=== PATIENT | female | born 1945 | race Caucasian/White ===

== ENCOUNTER 2020-08-24 12:14 | Emergency (ER) | payer MEDICARE, SELFPAY ==
--- NOTE | ~2020-08-24 | XR_ITS ---
EXAMINATION: XR chest 1V portable EXAM DATE: 08/24/2020 12:32 INDICATION: Neuro symptoms. Slurred speech, right-sided hemiparesis. TECHNIQUE: Portable AP frontal chest x-ray was obtained. Comparison is made to prior examination from 10/22/2014. FINDINGS: The lungs are clear. There are no pleural effusions. The cardiomediastinal silhouette is within normal limits. There is no pneumothorax suspected. The bones and soft tissues are unremarkab le. IMPRESSION: No acute cardiopulmonary findings. Reviewed, dictated and finalized at location A.
--- NOTE | ~2020-08-24 | CT_ITS ---
EXAMINATION: CTA brain carotid EXAM DATE: 08/24/2020 14:06 INDICATION: Slurred speech. TECHNIQUE: Spiral CTA of the carotid arteries was performed with intravenous injection 100 cc of Omn ipaque 350. Axial, coronal, sagittal reformatted images reviewed. Additional reformatted images crea judy on dedicated 3-D workstation. NASCET comparable standard used to assess the degree of arterial s tenosis. Spiral CT angiogram cerebral arteries performed with the same intravenous injection of cont rast. Source images of the brain CTA transferred to dedicated workstation for 3-D rotational image cr eation. Coronal, sagittal maximum intensity pixel images also reviewed. The dose-length product (DL P) for this examination was 1232.99 mGy-cm. The exposure was tailored according to patient size, an d iterative reconstruction (ASIR) was used as additional dose reduction technique. Correlation is mad e to noncontrast head CT earlier same day. FINDINGS: Left vertebral artery arises from the aortic arch, a normal congenital variant. There is mo derate right carotid bulb plaque which is mostly accommodated by the bulbs nodule dilation, 35% steno sis. On the left there is mild carotid bulb plaque with 0% stenosis. Mild bilateral carotid siphon ar terial sclerosis without stenosis. There is left-sided posterior communicating artery dominant mcat tutor ior cerebral artery. There is no carotid or vertebral basilar arterial dissection or fibromuscular dysplasia. There are no cerebral artery aneurysms. There is symmetric cerebral artery arborization, w ith short segment severe stenosis of the left P2 segment indicated on axial image 102. The sagittal, transverse and sigmoid sinuses enhance normally, no venous sinus thrombosis. Internal cerebral veins also enhance normally. IMPRESSION: 1. No acute carotid or intracranial findings. 2. Right carotid bulb 35% stenosis. 3. Left carotid bulb 0% stenosis. 4. Left P2 severe short segment stenosis. Reviewed, dictated and finalized at location A.
--- NOTE | ~2020-08-24 | CT_ITS ---
EXAMINATION: CT brain wo con DATE: 08/24/2020 12:23 INDICATION: Slurred speech and right-sided weakness TECHNIQUE: Computed tomography (CT) of the head was performed without intravenous contrast. Sagittal and coronal reconstructions were performed. The mA was adjusted according to patient size. Iterative reconstruction technique was employed. The dose-length product was 681.00 mGy-cm. COMPARISON: None FINDINGS: No acute intracranial hemorrhage, acute infarction or abnormal extra axial fluid collection. There is moderate scattered white matter hypoattenuation consistent with chronic small vessel ischemic diseas e. Ventricles are normal and symmetric. No mass/mass effect. Changes of bilateral intraocular lens re placement. The orbits, paranasal sinuses and mastoid air cells are normal. IMPRESSION: 1. Moderate scattered white matter hypoattenuation consistent with chronic small vessel ischemic dise ase. No acute intracranial process. Dr. Reed discussed these findings with Dr. Wong at 12:25 PM. Reviewed, dictated and finalized at location B. IMPRESSION: 1. Moderate scattered white matter hypoattenuation consistent with chronic smal l vessel ischemic disease. No acute intracranial process. Dr. Reed discusse d these findings with Dr. Wong at 12:25 PM.
--- NOTE | 2020-08-24 12:17 | ECG_ITS ---
Measurements Intervals [place] Rate: 98 P: 68 MS: 138 QRS: 9 QRSD: 105 T: 56 QT: 340 QTc: 434 Interpretive Statements SINUS RHYTHM BORDERLINE ST-T WAVE ABNORMALITY- HIGH LATERAL LEADS BASELINE ARTIFACT- I, II, III, AVF BORDERLINE ECG Electronically Signed On 08-24-2020 15:24:43 CDT by Uche Willard D.O.
[2020-08-24 12:29] VITALS: BP 137/75; BP 144/76; BP 148/93; PULSE 94; PULSE 98; PULSE 99; RESP 16; RESP 17; RESP 18; TEMP 36.2; O2SAT 94; O2SAT 95
[2020-08-24 12:31] LABS: Glucose Point of Care 268 (65-105)
--- NOTE | 2020-08-24 12:58 | ED.GENADULT ---
HPI - General Adult General Chief complaint: Suspected CVA Stated complaint: CVA, last known well 1130 Time Seen by Provider: 08/24/20 12:17 Source: patient History of Present Illness HPI narrative: Patient is a 74 y/o female complaining of tongue numbness, difficulty with speech and right leg weakness starting at approximately 11:30 AM today. She states that she woke up this morning feeling fine. She was trying to go to bathroom when her symptoms started. She is normally able to ambulate without assistance. She fell due to leg weakness. She did not hit her head or have any pain after the fall. She had to crawl afterwards. She feels her right leg weakness is better now, but she still has slurred speech. Related Data Home Medications Medication Instructions Recorded Confirmed atorvastatin 08/24/20 08/24/20 glipizide mg 08/24/20 losartan 08/24/20 metformin mg 08/24/20 omeprazole 08/24/20 sitagliptin [Januvia] mg 08/24/20 Allergies Allergy/AdvReac Type Severity Reaction Status Date / Time amoxicillin Allergy Unknown rash Verified 08/24/20 15:43 erythromycin base Allergy Unknown raised Verified 08/24/20 15:43 liver enzymes levofloxacin Allergy Unknown bowel Verified 08/24/20 15:43 problems pantoprazole Allergy Unknown Unknown Verified 08/24/20 15:43 Penicillins Allergy Unknown RASH Verified 08/24/20 15:43 lisinopril AdvReac Unknown COUGH Verified 08/24/20 15:43 PANTOPRAZOLE SODIUM AdvReac Unknown DIARRHEA Uncoded 09/07/15 10:30 Review of Systems Constitutional: Constitutional: Denies chills, Denies fever(s), Denies headache(s) and Reports weakness Eyes: Eyes: Denies blurry vision ENT: Denies headache(s) and Denies neck pain Cardiovascular: Cardiovascular: Denies chest pain and Denies dyspnea Respiratory: Respiratory: Denies cough and Denies dyspnea Gastrointestinal: Gastrointestinal: Denies abdominal pain, Denies diarrhea, Denies nausea and Denies vomiting Genitourinary: Genitourinary: Denies hematuria and Denies dysuria Musculoskeletal: Musculoskeletal: Denies back pain and Denies neck pain Neurologic: Reports Abnormal speech present, Reports abnormal gait, Denies headache(s), Reports focal weakness (right leg weakness) and Reports weakness PMFSH Family History Family History Father Family history of Parkinson's disease Other Diabetes mellitus Family history of Alzheimer's disease Family history of cardiovascular disease Family history of congestive heart failure Family history of malignant neoplasm Social History Social History Alcohol intake: never Exam Const: General: no acute distress and well developed Orientation/consciousness: oriented to person, oriented to place, oriented to time and patient oriented x3 HENMT: Head: normocephalic Ears: external ears normal General nose exam: Normal external nose present Eyes: General: appearance normal, both eyes and all related structures Conjunctivae: conjunctivae normal Neck: Neck: normal visual inspection and full ROM Chest: Chest palpation & inspection: normal inspection of the chest and no tenderness Resp: Effort & Inspection: normal respiratory effort Auscultation: clear to auscultation bilaterally Cardio: Rate: regular rate Rhythm: regular rhythm GI: GI Palp: No abdominal tenderness and Yes Soft to palpation Skin: General skin exam: normal color and turgor normal Neuro: General: oriented to person, oriented to place, oriented to time and patient oriented x3 Cognition (Neuro): normal cognition Extrem: General: normal to inspection, full ROM and no pedal edema Psych: Appearance: grossly normal Mental Status: mental status grossly normal Affect: normal affect Course Reevaluation(s) Reevaluation #1: Discussed with patient about the benefits and risks of tPA for presumed stroke. Informed patient of the
[2020-08-24 13:04] LABS: Basophils Percent Auto 0.6 % (0.2-1.2); Eosinophils Absolute Auto 0.1 K/mm3 (0-0.3); Eosinophils Percent Auto 1.9 % (0-4.4); Hematocrit 38.1 % (37.0-47.0); Hemoglobin 12.6 g/dL (12.0-15.0); Immature Granulocyte Absolute 0.04 K/mm3 (0.00-0.031); Immature Granulocyte Percent A 0.6 % (0-0.5); Lymphocytes Absolute Auto 1.49 K/mm3 (0.9-3.2); Lymphocytes Percent Auto 23.7 % (18.3-44.2); Mean Corpuscular HGB Conc 33.1 g/dl (32-36); Mean Corpuscular Hemoglobin 29.4 pg (26-34); Mean Platelet Volume 10.8 fl (7.4-10.4); Monocytes Absolute Auto 0.4 K/mm3 (0.1-0.6); Monocytes Percent Auto 6.7 % (2.6-8.5); Neutrophils Absolute Auto 4.2 K/mm3 (1.3-6.7); Neutrophils Percent Auto 66.5 % (45.5-73.1); Platelet Count Result 238 k/mm3 (150-375); Red Blood Count 4.28 M/mm3 (4.2-5.4); Red Cell Distribution Width 12.1 % (11.5-14.5); White Blood Count 6.3 K/mm3 (4.5-10.0)
[2020-08-24 13:13] VITALS: O2SAT 94
[2020-08-24 13:17] VITALS: BP 135/72; PULSE 99; RESP 20; O2SAT 94
[2020-08-24 13:17] LABS: Anion Gap 7 mmol/L (8-16); Blood Urea Nitrogen 22 mg/dL (7-17); Calcium 9.1 mg/dL (8.4-10.2); Carbon Dioxide 28 mmol/L (22-30); Chloride 104 mmol/L (98-107); Estimated CRCL calculation 50 ml/min; Estimated Glomerular Filt Rate 49; Glucose 267 mg/dL (65-105); INR 0.9; Potassium 4.3 mmol/L (3.4-5.0); Prothrombin Time 12.8 Seconds (11.1-14.7); Sodium 139 mmol/L (137-145)
[2020-08-24 13:18] LABS: Partial Thromboplastin Time 23.7 SECONDS (22.3-36.8)
[2020-08-24 13:30] LABS: Troponin I 0.042 ng/mL (0.000-0.034)
--- NOTE | 2020-08-24 14:34 | PC.NURSE ---
Pts TPA is complete. This RN believes that pts right sided facial dropping has increased. Informed Dr. Key of this. Pt requested to go to one of the hospitals in [place], I also informed Dr. Wong of this.
[2020-08-24 15:00] VITALS: O2SAT 100
[2020-08-24 15:36] VITALS: BP 142/85; PULSE 110; RESP 18; O2SAT 93
== END 2020-08-24 16:23 | disposition short-term general hospital (02) ==
LOC: ANHED 13:16
PROVIDERS: Emergency Provider Emergency Medicine
DX: I63.9 Cerebral infarction, unspecified (principal); R29.702 NIHSS score 2; E78.00 Pure hypercholesterolemia, unspecified; I10 Essential (primary) hypertension; E11.9 Type 2 diabetes mellitus without complications; Z79.84 Long term (current) use of oral hypoglycemic drugs; R94.31 Abnormal electrocardiogram [ECG] [EKG]
CPT/HCPCS: 36415; 37195; 70450; 70496; 70498; 71045; 80048; 82948; 84484; 85025; 85610; 85730; 93005; 99285; J2997; J7030; Q9967

== ENCOUNTER 2020-10-12 10:03 | Outpatient (CLI) | payer MEDICARE, SELFPAY ==
--- NOTE | ~2020-10-12 | US_ITS ---
EXAMINATION: US carotid duplex BI DATE: 10/12/2020 10:35 INDICATION: Carotid artery atherosclerosis and stenosis TECHNIQUE: Grayscale, color Doppler, and pulsed Doppler images of the cervical carotid arteries were obtained. The degree of vessel stenosis is placed in one of the following categories: normal, <50%, 5 0-69%, >=70% but less than near-occlusion, near-occlusion, or total occlusion. Note that percent sten osis relative to normal distal artery lumen diameter is indirectly measured from velocity measurement s as described by David, et al. Radiology 2003; 229:340-346. COMPARISON: Carotid CT angiogram dated 08/24/2020 FINDINGS: RIGHT: The right common carotid artery (CCA) peak systolic velocity (PSV) is 73 cm/s. The right internal car otid artery (ICA) PSV is 87 cm/s. The right ICA end-diastolic velocity (EDV) is 16 cm/s. The right IC A/CCA PSV ratio is 1.2. Grayscale and color Doppler images yield an estimate of <50% diameter reducti on from plaque in the ICA. The external carotid artery (ECA) PSV is 92 cm/s. There is antegrade flow in the right vertebral artery. LEFT: The left CCA PSV is 90 cm/s. The left ICA PSV is 73 cm/s. The left ICA EDV is 18 cm/s. The left ICA/C CA PSV ratio is 0.8. Grayscale and color Doppler images yield an estimate of <50% diameter reduction from plaque in the ICA. The ECA PSV is 77 cm/s. There is antegrade flow in the left vertebral artery. IMPRESSION: 1. <50% stenosis in the right internal carotid artery. 2. <50% stenosis in the left internal carotid artery. Reviewed, dictated and finalized at location A.
== END 2020-10-12 10:04 | disposition home or self-care (01) ==
PROVIDERS: PCP Internal Medicine; Visit Provider Nurse Practitioner
DX: I65.23 Occlusion and stenosis of bilateral carotid arteries (principal)
CPT/HCPCS: 93880

== ENCOUNTER → 2020-10-29 07:54 | Outpatient (CLI) | payer MEDICARE, SELFPAY ==
[2020-10-29 19:22] LABS: SARS-CoV-2 RNA PCR Negative
== END ==
PROVIDERS: PCP Internal Medicine; Visit Provider Internal Medicine Critical Care Medicine
DX: R68.89 Other general symptoms and signs (principal); Z20.822 Contact with and (suspected) exposure to COVID-19
CPT/HCPCS: C9803; U0003; U0005

== ENCOUNTER 2020-11-01 09:04 | Outpatient (CLI) | payer MEDICARE, SELFPAY ==
--- NOTE | 2020-11-15 13:52 | WPDSLEEPSTUD ---
Sleep Study Date of Study: 11/01/20 Ordering Provider: MARYAM Macias Interpreting Physician: Cony Raymond MD Sleep Study Type: Polysomnogram Height: 1.75 m Weight: 87.543 kg Body Mass Index: 28.5 Neck Circumference (inches): 16 Ione: 12 Reason for Sleep Study Recent stroke, increased need for sleep Sleep History Anna Bajwa is a 74-year-old female with a recent stroke in August of 2020. She does not awaken from sleep feeling short of breath. She does not awaken at night with heartburn, belching or coughing. She occasionally snores. Rarely she snores loudly enough that others complain. She does not have trouble sleep with a cold. She does not wake up gasping for breath at night. She does not have breathing problems at night observed by others. She occasionally sweats excessively at night. She does not notice her heart pounding or beating irregularly at night she occasionally falls asleep during the day, occasionally involuntarily but she never falls asleep while driving. She does not have loss of muscle tone was strong emotion. She does not have daytime difficulties due to excessive sleepiness. She does not feel paralyzed on waking or falling asleep. She occasionally has vivid dreamlike scenes upon awakening or falling asleep. She does not feel afraid to go to sleep. She does not have nightmares. She occasionally remembers her dreams. She does not have racing thoughts, feelings of sadness depression or anxiety. She does not have muscular tension. She does not notice part of her body jerking. She does not kick at night. She does not have crawling and aching feelings in her legs. She does not have any kind of leg pain at night. She does not have morning jaw pain. She occasionally grinds her teeth. She is not bothered by pain during the day, and she is not awakened by pain during the night. She does not wake up feeling stiff in the morning with sore achy muscles. She does not wake up with pain in the neck and spine. She has fatigue and tremors. She has had more problems with memory since her stroke. She does frequently awaken feeling refreshed. Before having her stroke she slept 6 hours a night and now after stroke she is sleeping 12 hours a night since August 24. She normally goes to bed between 9:10 p.m. falling asleep within 5 minutes waking once at night to urinate. She falls asleep again within 10 minutes. She wakes the morning between 8 and 9:00 a.m. Her weekend schedule is the same. She does take naps in the afternoon or evening. A short nap is sometimes refreshing. She feels better in the morning compared other times of day. Habits: No tobacco. No caffeine, alcohol or recreational drugs. [facility] Past Medical History Medical History (Updated 11/15/20 @ 14:10 by Cony Raymond MD) Carotid stenosis Chronic gastroesophageal reflux disease Depression Essential hypertension Hx of completed stroke R sided CVA with hemiparesis Hyperlipidemia Liver mass Type 2 diabetes mellitus without complication, without long-term current use of insulin Surgical History Surgical History (Updated 11/15/20 @ 14:01 by Cony Raymond MD) H/O hysterectomy with oophorectomy 1987 Family History Family History Father Family history of Parkinson's disease Heart problem Mother Cancer Sibling Anxiety Heart problem Grandparent Cancer Other Diabetes mellitus Family history of Alzheimer's disease Family history of cardiovascular disease Family history of congestive heart failure Family history of malignant neoplasm Social History Social History Smoking status: Never smoker Second hand tobacco smoke exposure: No Alcohol intake: current Medications Home Medications Medication Instructions Recorded Confirmed Type omega-3 fatty acids 1,000 mg 1,000 mg PO
[2020-11-15 14:12] VITALS: BMI 28.5
== END 2020-11-02 09:20 | disposition home or self-care (01) ==
LOC: ANHCSM 11-02 09:04
PROVIDERS: PCP Internal Medicine; Visit Provider Nurse Practitioner
DX: G47.33 Obstructive sleep apnea (adult) (pediatric) (principal); R06.83 Snoring
CPT/HCPCS: 95810

== ENCOUNTER 2020-11-10 13:23 | Outpatient (CLI) | payer MEDICARE, SELFPAY ==
--- NOTE | ~2020-11-10 | MM_ITS ---
EXAMINATION: MM screening [facility] BI w arsen HISTORY: Screening TECHNIQUE: Craniocaudal and mediolateral oblique 3-D tomosynthesis images were obtained and synthetic 2-D images were generated. CAD analysis was submitted and interpreted. COMPARISON: Comparison to multiple prior studies sequentially, with oldest reviewed study dated 02/2012. BREAST PARENCHYMAL COMPOSITION: There are scattered areas of fibroglandular density. FINDINGS: There is no evidence of suspicious mass, calcification, or architectural distortion to sugg est malignancy in either breast. There has been no suspicious interval change. IMPRESSION: 1. No mammographic evidence of malignancy. 2. Recommend routine screening mammography in one year. BI-RADS Category 1: Negative Reviewed, dictated and finalized at location A.
--- NOTE | ~2020-11-10 | DEXA_ITS ---
Bone Density Report Name: Anna Bajwa Age: 74 Sex: Female Ethnicity: White Date of : 1945 Indication: postmenopausal; height loss; hysterectomy; Referring Provider: Olamide Watts Study: Bone densitometry was performed. Exam Date: November 10, 2020 Accession number: [id number] Bone Density: Region BMD T-score Z-score Classification AP Spine (L1, L2, L3) 0.928 -0.8 1.5 Normal Femoral Neck (Left) 0.783 -0.6 1.5 Normal Total Hip (Left) 0.879 -0.5 1.3 Normal Total Hip Bilateral Avg 0.880 -0.5 1.3 Normal Femoral Neck (Right) 0.787 -0.6 1.5 Normal Total Hip (Right) 0.879 -0.5 1.3 Normal World Health Organization criteria for BMD impression classify patients as: Normal (T-score at or above -1.0), Osteopenia (T-score between -1.0 and -2.5), or Osteoporosis (T-score at or below -2.5). 10-year Fracture Risk: FRAX not reported because: All T-scores for Spine Total, Hip Total, Femoral Neck at or above -1.0 Clinical Information Provided by Patient: Has the following medical conditions: Hysterectomy Patient maximum height was 71 Menopause Age: 42 No regular weight bearing exercise Does not regularly consume dairy products Onset of menses at age 12 Number of children 1 Impression: The patient has normal bone mass. Discussion: BONE DENSITY IS ABOVE THE MINIMUM DESIRABLE LEVEL AT ALL SKELETAL SITES TESTED. This patient?s bone mineral density is above the minimum desirable level (T-score -1.0 or better) at all sites measured. The patient should follow a healthful lifestyle (good nutrition with adequate calcium and vitamin D, and appropriate weight-bearing exercise). Follow-Up: Consider repeating this study in 5 years or sooner if there is some new clinical indication. Reported by: SABINA on 11/10/2020 1:52:00 PM. Reviewed, dictated and finalized at location AMikey MADDOX
== END 2020-11-10 13:24 | disposition home or self-care (01) ==
LOC: ANHIMG 13:24
PROVIDERS: PCP Internal Medicine; Visit Provider Nurse Practitioner
DX: Z12.31 Encounter for screening mammogram for malignant neoplasm of breast (principal); Z78.0 Asymptomatic menopausal state
CPT/HCPCS: 77063; 77067; 77080

== ENCOUNTER → 2020-12-08 09:42 | Outpatient (CLI) | payer MEDICARE, SELFPAY ==
--- NOTE | ~2020-12-08 | MR_ITS ---
EXAMINATION: MR brain/brain stem wo con DATE: 12/08/2020 10:19 INDICATION: Right hemiparesis. TECHNIQUE: Magnetic resonance imaging (MRI) of the brain and brainstem was performed without intraven ous contrast. Sequences included sagittal and axial T1-weighted FSE, axial diffusion-weighted FS EPI, axial T2*-weighted GRE, axial T2-weighted FLAIR Propeller, and axial T2-weighted Propeller. Apparent diffusion coefficient (ADC) maps were created. COMPARISON: Head CT 08/24/2020 FINDINGS: There is an old lacunar infarct in left thalamus. There are scattered areas of low attenuat ion in the cerebral white matter and magdalena. There is no intracranial hemorrhage, acute infarction, or abnormal intracranial mass lesion. The ventricles are normal in size. There are likely changes of ocu lar lens replacement surgeries. There is mild mucosal thickening in the ethmoid sinuses. The mastoid air cells are normal. IMPRESSION: 1. Old lacunar infarct in left thalamus. 2. Moderate nonspecific cerebral white matter disease and pontine disease, which likely represents ch ronic small vessel ischemic disease. Reviewed, dictated and finalized at location A. IMPRESSION: 1. Old lacunar infarct in left thalamus. 2. Moderate nonspecific cerebral white matter disease and pontine disease, whic h likely represents chronic small vessel ischemic disease.
== END ==
PROVIDERS: PCP Internal Medicine; Visit Provider Nurse Practitioner Gerontology
DX: I63.9 Cerebral infarction, unspecified (principal); R93.0 Abnormal findings on diagnostic imaging of skull and head, not elsewhere classified
CPT/HCPCS: 70551

== ENCOUNTER 2021-01-11 11:00 | Outpatient (RCR) | payer MEDICARE, SELFPAY ==
--- NOTE | 2020-12-16 14:30 | PTOPEVAL ---
PHYSICAL THERAPY EVALUATION AND PLAN OF CARE Thank you for referring Anna Bajwa to [facility].? The patient is scheduled to be seen for therapy? 1x/week for 4 weeks. Please review, sign, date and return this plan of care JULISSA. I agree with and certify that the following plan of care is medically necessary. Referring Physician Date Attending Provider: Zahraa Cowan, LINUX DEVOPS ENGINEER Evaluation Problem Diagnosis CVA Onset 08/24/2020 Subjective Information Had a CVA affecting the right Query Text:As Reported By Patient/ side. She recieved TPA and Family went to [place] and spent 2 nights and then went home. She lives at home alone. Has had no falls since she has been home. Has a difficult time writing. 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 Prior Level of Function Activity Level (Last 3 Months) Hand Dominance Right Activity of Daily Living Ability Independent Indoor/Home Mobility Independent Community Mobility Independent Stairs Ability Independent Functional Cognition (Planning, Shopping Independent , Taking Medications) Cooking Yes Cleaning Yes Laundry Yes Shopping Yes Driving Yes Home Setting Home Type House,Single Level Environmental Barriers Stairs, Greater than 4 Living Situation Alone Support Available Hired Assistance,Local Family Support Mobility Assistive Devices (Used Last 3 None Months) Pain Score Pain Score 0: Self Report Lower Extremity Muscle Strength Testing General Lower Extremity Strength Gross Lower Extremity Strength generally WNL bilateral LE strength; heel walking and toe walking have decreased height ; SLS has a right hip drop indicating poor glute med strength on right Balance Assessment Denis Balance Assessment 43/56 Time Up Go (TUG) Timed Up and Go Test (TUG) (Seconds) 10 Assistive Devices None 5 Time Sit to Stand Time in Seconds 25.83 Dynamic Gait Index 17 Gait Ass
--- NOTE | 2020-12-16 15:39 | OTOPEVAL ---
OCCUPATIONAL THERAPY INITIAL EVALUATION REPORT 12/16/20 Thank you for referring Anna Bajwa to [facility].? The patient is scheduled to be seen for therapy? 1x/week for 4 weeks. Please review, sign, date and return this plan of care JULISSA. I agree with and certify that the following plan of care is medically necessary. 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 Cardiovascular History Hx Hypercholesterolemia Yes Hx Hypertension Yes: Med controlled Respiratory History Hx Respiratory Disorders No Significant History Gastrointestinal History Hx Gastrointestinal Disorders No Significant History Genitourinary History Hx Genitourinary Disorders No Significant History Musculoskeletal History Hx Musculoskeletal Disorders No Significant History Hematological History Hx Hematological Disorders No Significant History Endocrine History Hx Diabetes Yes HEENT History Hx HEENT Disorders No Significant History Integumentary History Hx Skin Disorders No Significant History Reproductive History Hx Reproductive Disorders No Significant History Psychosocial History Hx Psychiatric Disorders No Significant History Pain History History of Any Previous or Ongoing No Significant History Instance of Pain Anesthesia History Hx Anesthesia Reactions No Significant History Evaluation Information Problem Diagnosis CVA Onset 08/24/2020 Subjective Information Had a CVA affecting the right Query Text:As Reported By Patient/ side. She received TPA and Family went to [place] and spent 2 nights and then went home with home health OT and PT. Has had no falls since she has been home. She lives at home alone. She has returned to doing all of her own ADLs, cooking, laundry, and driving. 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 She reports that she would like to improve her writing to be able to write her own checks and sending cards. Prior Level of Function Activity Level (Last 3 Months) Hand Dom
--- NOTE | 2021-01-11 10:45 | OTOPEVAL ---
OCCUPATIONAL THERAPY RE-EVALUATION REPORT AND DISCHARGE NOTE 01/11/2021 Anna presents today for OT re-evaluation after beginning therapy 12/16/20 with 3 subsequent treatment sessions. Focus of OT was on distal hand coordination with the goal of being able to write more legibly for cards. Patient states that she has noticed improvements, but continues to be only at about 50% of what she once was with handwriting. Patient is currently independent with all HEPs to continue to work on functional coordination and handwriting. No further skilled OT is indicated at this time. Thank you for referring Anna Bajwa to [facility]. Please review, sign, date and return this D/C Note JULISSA. I agree with and certify that the following plan of care is medically necessary. Referring Physician Date Referring Provider: Zahraa Cowan, CARE MANAGEMENT COORDINATOR *OT Outpatient Re-Evaluation Start: 12/16/20 14:34 Diagnosis CVA Onset 08/24/2020 Subjective Information Anna reports improved Query Text:As Reported By Patient/ function with the right UE Family since beginning therapy. She states she has better control of the arm to wash her hair and improved coordination for writing. She states she sent her daughter a birthday card and she states she wrote better than she was, but not as good as I was . Reports washing hair is 80% normal and writing as maybe 50% normal . Pain Assessment Timing of Pain Assessment Timing of Pain Assessment Assessment Self Report Self Report Pain Level 0 Pain Score Pain Score 0: Self Report Upper Extremity Range of Motion General Upper Extremity Range of Motion Reason Not Measured WNL/Left,WNL/Right Upper Extremity Muscle Strength Testing General Upper Extremity Strength Gross Upper Extremity Strength Comments BUEs are 5/5 and symmetrical. 9-Hole Peg Hand Test Hand Right Scoring Time (seconds) 32 Comments 9-hole peg time remained unchanged since SOC. Norm: 28 sec Upper Extremity Exercise Finger/Thumb Exercise Right Finger/Thumb Exercise Comments Patient is currently independent with right hand strengthening and fine motor coordination HEP. Discussed at length the importance of continuing the HEP daily for optimal cortical reorganization. OT Clinical Summary OT Clinical Summary Anna presents today for OT re -evaluat
--- NOTE | 2021-01-11 11:13 | PTOPEVAL ---
PHYSICAL THERAPY DISCHARGE NOTE Thank you for referring Anna Bajwa to [facility].? Please review, sign, date and return this plan of care JULISSA. I agree with and certify that the following plan of care is medically necessary. Referring Physician Date Attending Provider: Zahraa Cowan, FARM MANAGEMENT PROFESSOR Discharge Diagnosis CVA Onset 08/24/2020 Subjective Information She reports that she thinks Query Text:As Reported By Patient/ she is doing better with Family better walking and a little better endurance. Pain Score Pain Score 0: Self Report Lower Extremity Muscle Strength Testing General Lower Extremity Strength Gross Lower Extremity Strength generally WNL bilateral LE strength; heel walking and toe walking have decreased height ; SLS has a right hip drop indicating poor glute med strength on right Balance Assessment Denis Balance Assessment 49/56 points Time Up Go (TUG) Timed Up and Go Test (TUG) (Seconds) 9 Assistive Devices None 5 Time Sit to Stand Time in Seconds 25.83 5 Time Sit to Stand Comments difficulty coming to stand Query Text:Normative Data: If Greater without hands; used arm rests Than 15 Seconds, 74% Increase Risk for for 4/5 reps Recurrent Falls 1 month ago = 25.83seconds with arm rests Dynamic Gait Index: 23/24 Gait Assessment 6 Minute Walk Total Distance (feet) 1,287 6 Minute Walk Gait Speed Score (feet/ 3.57 second) 6 Minute Gait Comments toe drag and right listing only happened during last minute of test General Exercise General Exercises Side Bilateral Exercise Type Active,Resistive Exercise Description -standing hip abduction x15 Query Text:Record Sets, Reps, each side Resistance, and Position -heel walking -toe walking -high knee marching forward -high knee marching in place with altnerating UE press up 3 # - more difficulty with coordination PT Clinical Summary Anna is a 74 yo female presenting to outpatient physical therapy 3.5 months s/ p CVA affecting her right side . Anna presents today with improved balance tests
== END 2021-03-03 07:44 | disposition home or self-care (01) ==
LOC: ANHPT 11:00
PROVIDERS: PCP Internal Medicine; Visit Provider Nurse Practitioner Gerontology
DX: I63.9 Cerebral infarction, unspecified (principal)
CPT/HCPCS: 97110; 97161; 97165; 97530

== ENCOUNTER 2021-01-20 08:05 | Outpatient (CLI) | payer MEDICARE, SELFPAY ==
--- NOTE | 2021-02-16 21:19 | WPDSLEEPSTUD ---
Sleep Study Date of Study: 01/20/21 Ordering Provider: Uche Willard DO Interpreting Physician: Cony Raymond MD Sleep Study Type: CPAP Titration Height: 1.78 m Weight: 86.636 kg Body Mass Index: 27.3 Neck Circumference (inches): 16 [place]: 15 Reason for Sleep Study * 11/01/2020 basic nocturnal polysomnogram with mild obstructive sleep apnea syndrome, overall apnea-hypopnea index 11.7, desaturation 86%, 1.3 minutes spent below 88% and snoring throughout the test; severe during supine REM with AHI 57.1 and supine sleep, AHI 55. She presents for a CPAP titration. She has hypertension, and this medical comorbidty allows her to proceed with PAP titration with overall mild sleep apnea, AHI 11.7. Sleep History Anna Bajwa is a 74-year-old female with a recent stroke in August of 2020. She does not awaken from sleep feeling short of breath. She does not awaken at night with heartburn, belching or coughing. She occasionally snores. Rarely she snores loudly enough that others complain. She does not have trouble sleep with a cold. She does not wake up gasping for breath at night. She does not have breathing problems at night observed by others. She occasionally sweats excessively at night. She does not notice her heart pounding or beating irregularly at night she occasionally falls asleep during the day, occasionally involuntarily but she never falls asleep while driving. She does not have loss of muscle tone was strong emotion. She does not have daytime difficulties due to excessive sleepiness. She does not feel paralyzed on waking or falling asleep. She occasionally has vivid dreamlike scenes upon awakening or falling asleep. She does not feel afraid to go to sleep. She does not have nightmares. She occasionally remembers her dreams. She does not have racing thoughts, feelings of sadness depression or anxiety. She does not have muscular tension. She does not notice part of her body jerking. She does not kick at night. She does not have crawling and aching feelings in her legs. She does not have any kind of leg pain at night. She does not have morning jaw pain. She occasionally grinds her teeth. She is not bothered by pain during the day, and she is not awakened by pain during the night. She does not wake up feeling stiff in the morning with sore achy muscles. She does not wake up with pain in the neck and spine. She has fatigue and tremors. She has had more problems with memory since her stroke. She does frequently awaken feeling refreshed. Before having her stroke she slept 6 hours a night and now after stroke she is sleeping 12 hours a night since August 24. She normally goes to bed between 9:10 p.m. falling asleep within 5 minutes waking once at night to urinate. She falls asleep again within 10 minutes. She wakes the morning between 8 and 9:00 a.m. Her weekend schedule is the same. She does take naps in the afternoon or evening. A short nap is sometimes refreshing. She feels better in the morning compared other times of day. Habits: No tobacco. No caffeine, alcohol or recreational drugs. [facility] Past Medical History Medical History (Updated 02/16/21 @ 21:37 by Cony Raymond MD) Carotid stenosis Chronic gastroesophageal reflux disease Depression Essential hypertension Hx of completed stroke R sided CVA with hemiparesis Hyperlipidemia Liver mass Obstructive sleep apnea Type 2 diabetes mellitus without complication, without long-term current use of insulin Surgical History Surgical History H/O hysterectomy with oophorectomy 1987 Family History Family History Father Family history of Parkinson's disease Heart problem Mother Cancer Sibling Anxiety Heart problem Grandparent Cancer Other Diabetes mellitus Family history of Alzheimer's disease Family history of cardiovascular di
[2021-02-16 21:43] VITALS: BMI 27.3
== END 2021-01-21 06:46 | disposition home or self-care (01) ==
PROVIDERS: PCP Internal Medicine; Visit Provider Internal Medicine Cardiovascular Disease
DX: G47.33 Obstructive sleep apnea (adult) (pediatric) (principal)
CPT/HCPCS: 95811

== ENCOUNTER 2021-01-25 07:41 | Outpatient (CLI) | payer MEDICARE, SELFPAY ==
--- NOTE | 2021-01-25 07:46 | ECHO_ITS ---
Patient Info Name: Anna Bajwa Age: 75 years : 1945 Gender: Female Ht: 70 in Wt: 194 lbs BSA: 2.10 m2 HR: 80 bpm BP: 116 / 84 mmHg Heart Rhythm: Sinus Rhythm Exam Date: 01/25/2021 8:07 AM Exam Location: [facility] Patient Status: Outpatient Admit Date: 01/25/2021 Staff Ordering Physician: Uche Willard DO Business Test Analyst: Emerita Clark RDCS Attending Provider: Uche Willard DO Referring Physician: Sudheer KATZ; Exam Type: CA echo doppler color flow Study Info Indications R06.00 - Dyspnea, unspecified Complete two-dimensional, color flow and Doppler transthoracic echocardiogram is performed. Summary 1. Complete two-dimensional, color flow and Doppler transthoracic echocardiogram is performed. 2. Left ventricular chamber dimension is normal. 3. Left ventricular systolic function is normal, estimated at 55-60%. 4. The left ventricular diastolic function is grade I diastolic dysfunction. 5. E/e' 12 is mildly elevated. 6. Left atrial chamber dimension is mildly enlarged. 7. There is mild aortic valve sclerosis. 8. The mitral valve has mildly calcified leaflets and moderately calcified annulus. 9. No pulmonary hypertension, estimated pulmonary arterial systolic pressure is 27 mmHg. 10. There is trace pulmonic regurgitation. Left Ventricle E/e' 12 is mildly elevated. Left ventricular chamber dimension is normal. Left ventricular systolic function is normal, estimated at 55-60%. The left ventricular diastolic function is grade I diastolic dysfunction. Right Ventricle Right ventricular systolic function is normal and with normal TAPSE 2.0 cm. Right ventricular chamber dimension is normal. Left Atria Left atrial chamber dimension is mildly enlarged. Right Atria Right atrial chamber dimension is normal. Aortic Valve The aortic valve is trileaflet. There is mild aortic valve sclerosis. There is no aortic valve stenosis. There is no aortic valve regurgitation. Pulmonic Valve There is trace pulmonic regurgitation. Mitral Valve The mitral valve has mildly calcified leaflets and moderately calcified annulus. There is no mitral valve stenosis. There is no mitral valve regurgitation. Tricuspid Valve There is no tricuspid valve regurgitation. No pulmonary hypertension, estimated pulmonary arterial systolic pressure is 27 mmHg. Pericardium/Pleural There is no pericardial effusion. Inferior Vena Cava Normal inferior vena cava with >50% collapse upon inspiration consistent with normal right atrial pressure, 5 mmHg. Aorta The aortic root size at the sinus of Valsalva is normal. Left Ventricular Outflow Tract Name Value Normal LVOT 2D LVOT Diameter 2.1 cm LVOT Doppler LVOT Peak Gradient 4 mmHg LVOT Mean Gradient 2 mmHg LVOT VTI 23 cm LVOT VTI/AV VTI Ratio 0.7 LVOT Stroke Volume 78 ml LVOT CO 5.6 l/min LVOT CI 2.7 l/min/m2 Pulmonic Valve -----
== END 2021-01-25 07:42 | disposition home or self-care (01) ==
LOC: ANHCARD 07:42
PROVIDERS: PCP Internal Medicine; Visit Provider Internal Medicine Cardiovascular Disease
DX: R06.00 Dyspnea, unspecified (principal)
CPT/HCPCS: 93306

== ENCOUNTER 2021-08-10 14:18 | Outpatient (CLI) | payer MEDICARE, SELFPAY ==
--- NOTE | 2021-08-15 16:54 | WPDHOLTEREM ---
Holter/Event Monitor Holter/Event Monitor Date of procedure: 08/10/21 Holter/Event Procedure: 48 Hr Holter Monitor Indications: Palpitations Conclusion: 1. 48 hour holter monitor on 08/10/21. 2. Predominant rhythm is sinus rhythm. HR range 63-143 bpm; average HR 84 bpm. 3. There are 109 premature supraventricular complexes and 3 supraventricular couplets. There are 4 episodes of atrial tachycardia, fastest at 185 bpm and longest lasting 9 beats. 4. There are 611 premature ventricular complexes. No ventricular tachycardia. 5. No sinoatrial or atrioventricular blocks. No significant pauses greater than 2 seconds. 6. No symptoms available for correlation.
== END 2021-08-10 14:19 | disposition home or self-care (01) ==
LOC: ANHCARD 14:21
PROVIDERS: PCP Internal Medicine; Visit Provider Internal Medicine Cardiovascular Disease
DX: R00.2 Palpitations (principal)
CPT/HCPCS: 93225; 93226

== ENCOUNTER 2022-01-23 15:58 | Outpatient (CLI) | payer MEDICARE, SELFPAY ==
--- NOTE | ~2022-01-23 | CT_ITS ---
EXAMINATION: CT brain wo con DATE: 01/23/2022 16:22 INDICATION: Left-sided headache, head pressure. History of cerebrovascular accident with hemiparesis. TECHNIQUE: Computed tomography (CT) of the head was performed without intravenous contrast. The mA wa s adjusted according to patient size. Iterative reconstruction technique was employed. Exam dose: 60 5.33 mGy-cm total exam DLP. COMPARISON: 12/08/2020 MRI brain/brainstem 08/24/2020 CTA brain carotid 08/24/2020 CT brain FINDINGS: Bilateral vertebral artery, basilar and bilateral carotid siphon internal carotid artery ca lcifications. There is prominent patchy diminished attenuation of the cerebral white matter, likely due to chronic vessel ischemic changes. Chronic prominent chronic lacunar infarct of left thalamus. Small chronic left basal ganglia lacunar infarct. No intracranial mass lesion or hemorrhage or cerebrovascular accident is noted otherwise. No subdural or epidural hematoma. No skull fracture or bone destruction. The mastoid air cells and paranasal sinuses are normally developed and aerated. No fracture or bone destruction of the cranial vault. IMPRESSION: Chronic lacunar infarcts of the left thalamus and left basal ganglia Cerebral atherosclerosis and chronic small vessel ischemic changes of the cerebral white matter No acute intracranial finding or hemorrhage is noted Reviewed, dictated and finalized at [facility]. Reviewed, dictated and finalized at [facility]. IMPRESSION: Chronic lacunar infarcts of the left thalamus and left basal gangl ia Cerebral atherosclerosis and chronic small vessel ischemic changes of the cereb ral white matter No acute intracranial finding or hemorrhage is noted
== END 2022-01-23 15:59 | disposition home or self-care (01) ==
PROVIDERS: PCP Internal Medicine; Visit Provider Internal Medicine
DX: R51.9 Headache, unspecified (principal); I67.2 Cerebral atherosclerosis
CPT/HCPCS: 70450

== ENCOUNTER 2022-02-01 14:30 | Outpatient (RCR) | payer MEDICARE, SELFPAY ==
[2021-11-16 10:56] VITALS: BMI 25.4
[2021-11-16 11:11] VITALS: BMI 25.4
== END 2022-02-07 10:38 | disposition home or self-care (01) ==
LOC: ANHDMC 14:30
PROVIDERS: PCP Internal Medicine; Visit Provider Internal Medicine Endocrinology, Diabetes & Metabolism
DX: E11.65 Type 2 diabetes mellitus with hyperglycemia (principal); Z71.3 Dietary counseling and surveillance; Z71.89 Other specified counseling
CPT/HCPCS: 97802; G0108; G0109

== ENCOUNTER 2022-04-27 14:21 | Outpatient (RCR) | payer MEDICARE, SELFPAY | END 2022-04-27 19:06 | disposition home or self-care (01) | LOC: ANHDMC 14:21 | PROVIDERS: PCP Internal Medicine; Visit Provider Internal Medicine Endocrinology, Diabetes & Metabolism | DX: E11.65 Type 2 diabetes mellitus with hyperglycemia (principal); Z71.89 Other specified counseling | CPT/HCPCS: G0109 ==

== ENCOUNTER 2022-08-28 10:10 | Outpatient (CLI) | payer MEDICARE, SELFPAY ==
--- NOTE | ~2022-08-28 | MM_ITS ---
EXAMINATION: MM screening giovany BI w arsen HISTORY: Screening TECHNIQUE: Craniocaudal and mediolateral oblique 3-D tomosynthesis images were obtained and synthetic 2-D images were generated. CAD analysis was submitted and interpreted. COMPARISON: No prior mammogram is available for comparison at this institution. BREAST PARENCHYMAL COMPOSITION: The breasts are heterogeneously dense, which may obscure small masses . FINDINGS: In the left breast there are 2 clusters of calcifications posteriorly in the upper outer qu adrant which have increased in number and density compared with prior studies. The right breast is st able without evidence for malignancy. IMPRESSION: 1. Developing clusters of calcifications in the left breast. 2. Magnification views are recommended. BI-RADS Category 0: Incomplete: Needs additional imaging evaluation. Reviewed, dictated and finalized at location [facility].
== END 2022-08-28 10:11 | disposition home or self-care (01) ==
LOC: ANHIMG 10:12
PROVIDERS: PCP Internal Medicine; Visit Provider Nurse Practitioner
DX: Z12.31 Encounter for screening mammogram for malignant neoplasm of breast (principal); R92.8 Other abnormal and inconclusive findings on diagnostic imaging of breast
CPT/HCPCS: 77063; 77067

== ENCOUNTER 2022-09-18 11:47 | Outpatient (CLI) | payer MEDICARE, SELFPAY ==
--- NOTE | ~2022-09-18 | MM_ITS ---
EXAMINATION: MM diagnostic mammo unilat LT HISTORY: Developing clusters of calcifications reported in left breast on 08/28/2022 screening mammogr am TECHNIQUE: Additional ML and magnification MLO and CC views were performed.. CAD analysis was submitt ed and interpreted. COMPARISON: 08/28/2022, 11/10/2020ilateral screening mammogram examinations FINDINGS: There are a couple of chronic grouped microcalcifications in the upper outer left breast wh ich date back to 11/10/2020. 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 Some arterial calcification is noted as well. There is heterogeneous density of the breast. No suspicious mass, architectural distortion, malignant calcification, skin thickening or retraction is evident. IMPRESSION: 1. Benign calcifications 2. Routine annual mammographic screening is recommended BI-RADS Category 2: Benign finding(s). Reviewed, dictated and finalized at location [facility].
== END 2022-09-18 11:48 | disposition home or self-care (01) ==
LOC: ANHIMG 11:47
PROVIDERS: PCP Internal Medicine; Visit Provider Nurse Practitioner
DX: R92.8 Other abnormal and inconclusive findings on diagnostic imaging of breast (principal)
CPT/HCPCS: 77065

== ENCOUNTER 2022-10-10 10:00 | Outpatient (RCR) | payer MEDICARE, SELFPAY ==
--- NOTE | 2022-08-17 18:29 | PTOPEVAL1 ---
Assessment and note entered by Tyree Cervantes, PT Evaluation Information Assessment Status Evaluation Diagnosis R shoulder pain Subjective Information Patient reports that she was moving her marcello sized mattress 6-8 months ago and felt pain in her R shoulder, she is R handed. She reports no weakness or decreased sensation in the rest of the arm, but she does has pain going down the shoulder into the deltoid. She does not use any pain meds, ice, heat, or topical ointments. Clinical Summary Anna is a 76 year old female coming into the clinic with R shoulder pain, she has pain with abduction over the head along with manual muscle test of flexion, external rotation and flexion. Positive empty cans, lift off, and Hawkin's Herman test. Physical therapy will work on improving her posture, range of motion, and strength, while working on limiting her pain with modalities and manual therapy. These treatments will address the objective and functional deficits as defined above. The patient will be advanced safely and appropriately in order for the patient to progress towards his/her prior level of function. Additional exercises will be introduced and as well as a comprehensive home exercise program upon discharge, if needed, ?to ensure carryover of functional gains achieved in the clinic. This treatment plan has been reviewed and agreement upon by the patient.
--- NOTE | 2022-09-13 13:38 | PTOPREEVAL ---
Assessment and note entered by Tyree Cervantes, PT Evaluation Information Assessment Status Re-evaluation Diagnosis Pain in R shoulder, chronic pain other Subjective Information Patient reports that until coming into the clinic she was feeling great, but opening the door the wind caught the door and she had her shoulder jerked. She reports that the exercises are working well and Sita, the LICENSED REACTOR OPERATOR, is great at her job. Patient also reports centralization of pain to just around the AC joint. Biggest issue is openig doors. Reported Pain Level Pain Score 4: Self Report Assessment PT Clinical Summary Anna is a 76 year old female coming into the clinic with a diagnosis of R shoulder pain and other chronic pain. She was evaluated on 08/16/22 and has attended 7 visits. She has met her centralization goal and improved her shoulder abduction active range of motion by 20 degrees. Physical therapy is still working on pain control and further improvement in shoulder range of motion. Recommend continued physical therapy. Plan of Care Interventions Electrical Stimulation,Gait Training,Hot Pack/Cold Pack,Manual Therapy,Neuro Re-education,Patient/ Caregiver Education,Therapeutic Activities, Therapeutic Exercise,Ultrasound Other Interventions taping, cupping, and IASTM PT Services Indicated Yes Treatment Frequency and 1-2x/wk for 4 weeks Duration These treatments will address the objective and functional deficits as defined above. The patient will be advanced safely and appropriately in order for the patient to progress towards his/her prior level of function. Additional exercises will be introduced and as well as a comprehensive home exercise program upon discharge, if needed, ?to ensure carryover of functional gains achieved in the clinic. This treatment plan has been reviewed and agreement upon by the patient.
--- NOTE | 2022-10-10 11:21 | PTOPDC ---
Assessment and note entered by Tyree Cervantes, PT Evaluation Information Assessment Status Discharge Diagnosis R shoulder pain Onset Chronic Subjective Information Patient reports she has pain only at end range or with lifting heavy objects. The pain has centralized into the R shoulder. She feels okay with discharge from skilled physical therapy still continuing her HEP. Reported Pain Level Pain Score 1: Self Report Assessment PT Clinical Summary Anna is a 76 year old female coming into the clinic with R shoulder pain. She was evaluated on 08/16/22 and attended 14 visits. She has met all of her goals besides her range of motion, but has increased 15 degrees abduction and flexion since re-eval on 09/13/22. Patient will be discharged at this time with her HEP. Plan of Care PT Services Indicated No
== END 2022-10-30 08:47 | disposition home or self-care (01) ==
LOC: ANHPT 10:00
PROVIDERS: PCP Internal Medicine; Visit Provider Nurse Practitioner
DX: M25.511 Pain in right shoulder (principal); G89.29 Other chronic pain
CPT/HCPCS: 97110; 97112; 97140; 97161; 97530

== ENCOUNTER 2023-03-04 15:35 | Inpatient (IN) | payer MEDICARE, SELFPAY ==
[2023-03-04] VITALS (14 sets, daily range): BP systolic 105–127; BP diastolic 54–95; PULSE 64–90; RESP 11–98; TEMP 36.4–36.6; O2SAT 20–100; BMI 26.2
--- NOTE | ~2023-03-04 | XR_ITS ---
EXAMINATION: XR chest 1V portable Exam Date/Time: 03/04/2023 15:50 CDT HISTORY: STEMI Comparison: 08/24/2020. RESULT: Lines, tubes, and devices: None. Lungs and pleura: Senescent changes, otherwise clear. Cardiomediastinal silhouette: Stable. Other: No acute osseous or upper abdominal finding. IMPRESSION: No acute cardiopulmonary process. Reviewed, dictated and finalized at location K.
--- NOTE | 2023-03-04 15:40 | ED.CHESTPAIN ---
HPI - Chest Pain General Chief Complaint: Chest Pain Stated Complaint: chest pain Time Seen by Provider: 03/04/23 15:40 History of Present Illness HPI narrative: Patient is a 77-year-old female history of CVA, diabetes, hyperlipidemia, hypertension here with chest pain. Patient had sudden onset diffuse anterior chest pain which radiated to the back. Chest pain was associated with diaphoresis, shortness of breath and nausea. EMS was called, EMS EKG concerning for STEMI, brought here to the ED. EMS reports patient takes daily ASA, took ASA a second time on advice fo dispatch. She notes chest pain is much improved but still present, midsternal at this time with improving associated symptoms. No prior cardiac history. Related Data Home Medications Medication Instructions Recorded Confirmed omega-3 fatty acids 1,000 mg 1,000 mg PO DAILY 08/24/21 02/26/23 capsule methylcellulose (laxative) 500 mg 500 mg PO DAILY 12/29/21 02/26/23 tablet (Citrucel) multivitamin with minerals 1 tablet PO DAILY 12/29/21 02/26/23 (Hair,Skin and Nails tablet) cholecalciferol (vitamin D3) 50 50 mcg PO DAILY 06/27/22 02/26/23 mcg (2,000 unit) capsule Allergies Allergy/AdvReac Type Severity Reaction Status Date / Time erythromycin base Allergy Intermediate raised Verified 03/04/23 15:44 liver enzymes levofloxacin Allergy Intermediate bowel Verified 03/04/23 15:44 problems amoxicillin Allergy Mild rash Verified 03/04/23 15:44 Penicillins Allergy Mild RASH Verified 03/04/23 15:44 lisinopril AdvReac Unknown COUGH Verified 03/04/23 15:44 Review of Systems Review of Systems: CONSTITUTIONAL: Denies fever, chills, or sweats. EYES: Denies visual changes, redness, or discharge. ENT: Denies rhinorrhea, congestion, sore throat, or otalgia. CARDIOVASCULAR: Denies chest pain, palpitations, or edema. RESPIRATORY: Denies cough or dyspnea. GASTROINTESTINAL: Denies abdominal pain, nausea, vomiting, or diarrhea. GENITOURINARY: Denies dysuria or hematuria. SKIN: Denies rash or itching. MUSCULOSKELETAL: Denies back pain, joint pain, or myalgia. NEUROLOGIC: Denies headache, numbness, or weakness. PSYCHIATRIC: Denies anxiety or depression. [facility] Past Medical History Medical History Carotid stenosis Cerebrovascular accident (CVA) with hemiparesis 08/2020 Chronic gastroesophageal reflux disease Depression VALDEZ (dyspnea on exertion) Essential hypertension GERD (gastroesophageal reflux disease) Hx of completed stroke R sided CVA with hemiparesis Hyperlipidemia Liver mass Low vitamin D level Lump on neck Obstructive sleep apnea Postmenopausal Restless legs syndrome (RLS) Type 2 diabetes mellitus without complication, without long-term current use of insulin Surgical History Surgical History H/O hysterectomy with oophorectomy 1987 Family History Family History Father Family history of Parkinson's disease Heart problem Mother Cancer Sibling Anxiety Heart problem Grandparent Cancer Other Depression Diabetes mellitus Family history of Alzheimer's disease Family history of cardiovascular disease Family history of congestive heart failure Family history of malignant neoplasm Heart disease Social History Social History Smoking status: Never smoker Second hand tobacco smoke exposure: No Alcohol intake: former Substance use: never Lack of Transportation: No Lack of Food: Never True Current Housing: I Have Housing Concerned About Future Housing: No Difficulty Paying Gas/Electric Bills: No Difficulty Paying for Meds: No Currently Unemployed: No Education: Associate Degree Difficulty w/ Childcare or Family Care: No Spiritual care concerns: No Exam Narrati
--- NOTE | 2023-03-04 15:41 | PC.NURSE ---
VO 180mg Brilenta, 4000units heparin IVP given per Dr. Gonzalez
[2023-03-04] MEDS: TICAGRELOR 90 MG TABLET 180 MG PO (15:47)
[2023-03-04] MEDS: HEPARIN SODIUM 5,000 UNITS/ML VIAL 4000 UNITS IV PUSH (15:48)
[2023-03-04 15:54] LABS: Basophils Absolute Auto 0.1 K/mm3 (0.0-0.1); Basophils Percent Auto 0.8 % (0.2-1.2); Eosinophils Absolute Auto 0.2 K/mm3 (0-0.3); Eosinophils Percent Auto 2.1 % (0-4.4); Hematocrit 41.3 % (37.0-47.0); Hemoglobin 13.1 g/dL (12.0-15.0); Immature Granulocyte Absolute 0.03 K/mm3 (0.00-0.031); Immature Granulocyte Percent A 0.3 % (0-0.5); Lymphocytes Absolute Auto 3.18 K/mm3 (0.9-3.2); Lymphocytes Percent Auto 33.3 % (18.3-44.2); Mean Corpuscular HGB Conc 31.7 g/dl (32-36); Mean Corpuscular Hemoglobin 29.1 pg (26-34); Mean Corpuscular Volume 91.8 fl (80-100); Mean Platelet Volume 10.9 fl (7.4-10.4); Monocytes Absolute Auto 0.7 K/mm3 (0.1-0.6); Neutrophils Absolute Auto 5.4 K/mm3 (1.3-6.7); Neutrophils Percent Auto 56.5 % (45.5-73.1); Platelet Count Result 282 k/mm3 (150-375); Red Cell Distribution Width 12.3 % (11.5-14.5); White Blood Count 9.6 K/mm3 (4.5-10.0)
[2023-03-04 16:05] LABS: INR 0.9; Prothrombin Time 12.6 Seconds (11.1-14.7)
[2023-03-04 16:07] LABS: Partial Thromboplastin Time 73.5 SECONDS (22.3-36.8)
[2023-03-04 16:36] LABS: Alanine Aminotransferase 15 U/L (6-35); Albumin Level 4.4 g/dL (3.5-5.1); Alkaline Phosphatase 67 U/L (38-126); Aspartate Amino Transferase 36 U/L (14-36); Bilirubin,Total 0.7 mg/dL (0.2-1.3); Blood Urea Nitrogen 24 mg/dL (7-17); Carbon Dioxide 20 mmol/L (22-30); Chloride 105 mmol/L (98-107); Cholesterol 175 mg/dL (0-200); Estimated CRCL calculation 50 ml/min; Estimated Glomerular Filt Rate > 60; Glucose 209 mg/dL (65-110); Potassium 4.4 mmol/L (3.4-5.0); Triglycerides 217 mg/dL (<150); Troponin I 0.012 ng/mL (0.000-0.034)
[2023-03-04 16:44] LABS: Anion Gap 11 mmol/L (8-16); Calcium 9.3 mg/dL (8.4-10.2); HDL Direct 51 mg/dL; Sodium 136 mmol/L (137-145)
[2023-03-04 16:48] LABS: LDL Cholesterol Direct 84 mg/dL
--- NOTE | 2023-03-04 17:05 | ECG_ITS ---
Measurements Intervals [place] Rate: 93 P: [place]: 0 QRS: 59 QRSD: 119 T: 94 QT: 378 QTc: 471 Interpretive Statements ATRIAL FIBRILLATION INTRAVENTRICULAR CONDUCTION DELAY INFERIOR ST ELEVATION MYOCARDIAL INFARCT- ACUTE ANTEROLATERAL ST ELEVATION MYOCARDIAL INFARCT- ACUTE BASELINE WANDER- I, V2-V3 ABNORMAL ECG COMPARED TO ECG 08/24/2020 12:34:46 ATRIAL FIBRILLATION NOW PRESENT MYOCARDIAL INFARCT FINDING NOW PRESENT Electronically Signed On 03-04-2023 20:36:24 CDT by Uche Willard D.O.
--- NOTE | 2023-03-04 18:34 | ECG_ITS ---
Measurements Intervals [place] Rate: 84 P: 71 VT: 193 QRS: -11 QRSD: 106 T: -24 QT: 391 QTc: 464 Interpretive Statements SINUS RHYTHM INFERIOR INFARCT, RECENT ABNORMAL ECG COMPARED TO ECG 03/04/2023 15:38:17 SINUS RHYTHM NOW PRESENT Electronically Signed On 03-05-2023 7:35:16 CDT by Uche Willard D.O.
--- NOTE | 2023-03-04 18:34 | ADMGEN ---
This patient, Anna Bajwa, was admitted to Intensive Care Unit-6 from [facility] at 1834. Patient/family oriented to hospital policies and general routines including ID bracelet, bed and alarms, visiting hours, pain management, procedures, bathroom and other care routines, personal items, smoking policy, room service/diet, and visiting hours. Information on how to activate the Rapid Response Team has been discussed. Patient/Family are encouraged to report perceived risks to care and to ask questions if they do not understand what they are told or what they should do.
--- NOTE | 2023-03-04 18:38 | PM.IMHP ---
H&P: HPI History of Present Illness Date/Time: 03/04/23 18:38 Chief Complaint: Chest pain Narrative: Patient is a 77 year old female who is referred for emergent cardiac cath for inferolateral STEMI. Patient follows with Dr. Willard. She has diabetes, hyperlipidemia, FLY, CVA in August 2020, paroxysmal atrial tachycardia. Patient had sudden onset anterior chest pain associated with diaphoresis, shortness of breath, and nausea. EKG per EMS concerning for STEMI, on arrival to [place] [facility], EKG confirmed inferolateral STEMI with atrial fibrillation. Review of Systems Review of Systems: All systems reviewed & are unremarkable except as noted in HPI and below (HPI) [facility] Past Medical History Medical History Carotid stenosis Cerebrovascular accident (CVA) with hemiparesis 08/2020 Chronic gastroesophageal reflux disease Depression VALDEZ (dyspnea on exertion) Essential hypertension GERD (gastroesophageal reflux disease) Hx of completed stroke R sided CVA with hemiparesis Hyperlipidemia Liver mass Low vitamin D level Lump on neck Obstructive sleep apnea Postmenopausal Restless legs syndrome (RLS) Type 2 diabetes mellitus without complication, without long-term current use of insulin Surgical History Surgical History H/O hysterectomy with oophorectomy 1987 Family History Family History Father Family history of Parkinson's disease Heart problem Mother Cancer Sibling Anxiety Heart problem Grandparent Cancer Other Depression Diabetes mellitus Family history of Alzheimer's disease Family history of cardiovascular disease Family history of congestive heart failure Family history of malignant neoplasm Heart disease Social History Social History Smoking status: Never smoker Second hand tobacco smoke exposure: No Alcohol intake: former Substance use: never Lack of Transportation: No Lack of Food: Never True Current Housing: I Have Housing Concerned About Future Housing: No Difficulty Paying Gas/Electric Bills: No Difficulty Paying for Meds: No Currently Unemployed: No Education: Associate Degree Difficulty w/ Childcare or Family Care: No Spiritual care concerns: No Meds Home Medications and Allergies Home Medications Medication Instructions Recorded Confirmed Type aspirin 325 mg tablet 325 mg PO DAILY #30 tabs 10/25/20 02/26/23 Rx omega-3 fatty acids 1,000 mg 1,000 mg PO DAILY 08/24/21 02/26/23 History capsule methylcellulose (laxative) 500 mg 500 mg PO DAILY 12/29/21 02/26/23 History tablet (Citrucel) multivitamin with minerals 1 tablet PO DAILY 12/29/21 02/26/23 History (Hair,Skin and Nails tablet) [facility] 02/28/22 02/26/23 Rx Verio test strips) cholecalciferol (vitamin D3) 50 50 mcg PO DAILY 06/27/22 02/26/23 History mcg (2,000 unit) capsule lancets 33 gauge ([facility] #100 ea 09/21/22 02/26/23 Rx Plus Lancet) atorvastatin 80 mg tablet 80 mg PO DAILY #90 tabs 10/11/22 02/26/23 Rx omeprazole 20 mg capsule,delayed 20 mg PO DAILY #90 caps 11/21/22 02/26/23 Rx release metoprolol succinate 25 mg See Rx Instructions .Route 01/09/23 02/26/23 Rx tablet,extended release 24 hr .COMPLEX #30 tabs metformin 500 mg tablet,extended 1,000 mg PO BID 90 days #360 tabs 02/19/23 02/26/23 Rx release 24hr sitagliptin phosphate 100 mg See Rx Instructions .Route 02/19/23 02/26/23 Rx tablet (Januvia) .COMPLEX #90 tabs Allergies Allergy/AdvReac Type Severity Reaction Status Date / Time erythromycin base Allergy Intermediate raised Verified 03/04/23 15:44 liver enzymes levofloxacin Allergy Intermediate bowel Verified 03/04/23 15:44 problems amoxicillin Allergy Mild rash Verified 03/04/23 15:44
--- NOTE | 2023-03-04 18:47 | WPDMODSED ---
Moderate Sedation Note-Pt Data Patient Data Diagnosis: STEMI Present Complaint: STEMI Procedure to be performed/Plan: Primary PCI Allergies Allergy/AdvReac Type Severity Reaction Status Date / Time erythromycin base Allergy Intermediate raised Verified 03/04/23 15:44 liver enzymes levofloxacin Allergy Intermediate bowel Verified 03/04/23 15:44 problems amoxicillin Allergy Mild rash Verified 03/04/23 15:44 Penicillins Allergy Mild RASH Verified 03/04/23 15:44 lisinopril AdvReac Unknown COUGH Verified 03/04/23 15:44 Home Medications Medication Instructions Recorded Confirmed Type aspirin 325 mg tablet 325 mg PO DAILY #30 tabs 10/25/20 02/26/23 Rx omega-3 fatty acids 1,000 mg 1,000 mg PO DAILY 08/24/21 02/26/23 History capsule methylcellulose (laxative) 500 mg 500 mg PO DAILY 12/29/21 02/26/23 History tablet (Citrucel) multivitamin with minerals 1 tablet PO DAILY 12/29/21 02/26/23 History (Hair,Skin and Nails tablet) blood sugar diagnostic ([employer] #100 ea 02/28/22 02/26/23 Rx Verio test strips) cholecalciferol (vitamin D3) 50 50 mcg PO DAILY 06/27/22 02/26/23 History mcg (2,000 unit) capsule lancets 33 gauge ([employer] [facility] #100 ea 09/21/22 02/26/23 Rx Plus Lancet) atorvastatin 80 mg tablet 80 mg PO DAILY #90 tabs 10/11/22 02/26/23 Rx omeprazole 20 mg capsule,delayed 20 mg PO DAILY #90 caps 11/21/22 02/26/23 Rx release metoprolol succinate 25 mg See Rx Instructions .Route 01/09/23 02/26/23 Rx tablet,extended release 24 hr .COMPLEX #30 tabs metformin 500 mg tablet,extended 1,000 mg PO BID 90 days #360 tabs 02/19/23 02/26/23 Rx release 24hr sitagliptin phosphate 100 mg See Rx Instructions .Route 02/19/23 02/26/23 Rx tablet (Januvia) .COMPLEX #90 tabs Current Medications: Active Medications Aspirin (Aspirin 81 Mg Enteric Tablet) 81 mg PO QAM YAN Atorvastatin Calcium (Atorvastatin 40 Mg Tablet) 80 mg PO DAILY YAN Sodium Chloride (Normal Saline Iv) 1,000 mls @ 125 mls/hr IV CONT .Q8H ONE Stop: 03/05/23 02:33 Eptifibatide (Integrilin) 75 mg in 100 mls @ 12.363 mls/hr IV CONT .Q8H6M YAN Stop: 03/05/23 12:34 Metoprolol Succinate (Metoprolol Succinate Ext Rel 25 Mg Tabcr) 25 mg PO QAM YAN Perflutren Lipid Microsphere (Perflutren Lipid Microspheres 1.5 Ml Vial Diluted To 10 Ml Total Volume) 0 ml IV PUSH ONCE PRN; Protocol PRN Reason: adequate visualization Stop: 03/07/23 18:36 Ticagrelor (Ticagrelor 90 Mg Tablet) 90 mg PO Q12HR YAN Sedation/Anesthesia: No previous sedation/anesthesia problems (including family history). [facility] Past Medical History Medical History Carotid stenosis Cerebrovascular accident (CVA) with hemiparesis 08/2020 Chronic gastroesophageal reflux disease Depression VALDEZ (dyspnea on exertion) Essential hypertension GERD (gastroesophageal reflux disease) Hx of completed stroke R sided CVA with hemiparesis Hyperlipidemia Liver mass Low vitamin D level Lump on neck Obstructive sleep apnea Postmenopausal Restless legs syndrome (RLS) Type 2 diabetes mellitus without complication, without long-term current use of insulin Surgical History Surgical History H/O hysterectomy with oophorectomy 1987 Family History Family History Father Family history of Parkinson's disease Heart problem Mother Cancer Sibling Anxiety Heart problem Grandparent Cancer Other Depression Diabetes mellitus Family history of Alzheimer's disease Family history of cardiovascular disease Family history of congestive heart failure Family history of malignant neoplasm Heart disease Social History Social History Smoking status: Never smoker Second hand tobacco smoke exposure: No Alcohol intake: former Substance use: never Lack o
--- NOTE | 2023-03-04 18:48 | WPDCARDPROC ---
Cardiac Cath Procedure Note Date of procedure:: 03/04/23 Performing physician:: CATHETERIZATION LABORATORY REPORT Procedure Date: 03/04/2023 Dairy Specialist: Trupti Humphrey M.D., [facility]? Referring Physician: Milagros Gonzalez ([facility]) Anesthesia: Versed and Fentanyl were ordered and given in my presence at 16:27 procedure ended at 18:05. Supervision of nurse monitored moderate sedation with Versed and Fentanyl was provided for 98 minutes. Total of Versed 1mg and Fentanyl 25mcg were administered by the Motor Vehicle Light Assembler RN Luz Cedeño. Pre-op Diagnosis: Acute inferolateral STEMI Post-op Diagnosis: 1. Acute thrombotic occlusion of the proximal RCA with severe obstructive disease of the ostial-proximal RCA and the mid RCA s/p successful complex IVUS-guided PCI with aspiration thrombectomy, YUMIKO x 1 to the ostial-proximal RCA, and YUMIKO x 1 to the mid RCA. 2. Obstructive coronary artery disease of the left circumflex that will need staged PCI 3. Diagonal disease that is best suitable for medical management Procedure(s): 1. Moderate sedation 2. Ultrasound-guided access of the right common femoral artery 3. Coronary angiography 4. Aspiration thrombectomy of the RCA. 5. IVUS of RCA 6. YUMIKO x 1 to the ostial-proximal RCA 7. YUMIKO x 1 to the mid RCA 8. Angioseal closure of the right common femoral artery Access Site: Right common femoral artery Brief History and Clinical Indications: Patient is a 77 year old female with acute STEMI. All risks, benefits and alternatives to left heart catheterization with or without percutaneous coronary intervention was discussed at length with the patient. Risk of complications including but not limited to bleeding, infection, arrhythmia, stroke, worsening kidney function, blood loss, groin hematoma, limb loss, emergency coronary artery bypass grafting, and even were discussed with the patient and all questions were answered. The patient understood and wished to proceed. Time out called, patient name, date of , medical record number, allergies, procedure performed, identify Dairy Specialist, patient and staff member concurred with accurate data, procedure carried on. Findings: LEFT HEART CATHETERIZATION FINDINGS: 1. Left main: The left main coronary artery is widely patent without any significant obstructive disease. 2. Left anterior descending: The proximal LAD is heavily calcified. The LAD has mild diffuse disease without any significant obstructive disease. The first diagonal branch has an early bifurcation and and are small caliber vessels with diffuse disease. 3. Ramus: The Ramus has diffuse mild disease without any significant obstructive angiographic disease. 4. Left circumflex: The proximal left circumflex has a 90-99% stenosis. Remainder of the LCX and OM branch have mild diffuse disease. 5. Right coronary artery: Large caliber vessel. The RCA is the dominant vessel. The RCA has heavy diffuse calcifications throughout. There is a large thrombus burden in the proximal RCA with significant ostial disease with pressure dampening upon catheter engagement. The mid RCA has a 90% stenosis. There is a mild-moderate lesion distally to this. The RPDA is a small caliber vessel with diffuse disease without any significant obstructive disease. The RPLV is a medium-large caliber vessel with thrombus noted in the distal portion of the RPLV. Description of Procedure and PCI: Patient transferred to sleep lab technician room. Prepped and draped in usual sterile fashion. 2% lidocaine in right groin area. Micropuncture needle used to access right common femoral artery under ultrasound guidance. J wire advanced, micropuncture cannula placed. Right iliofemoral angiogram performed, access confirmed and micropuncture cannula exchanged for 6-FR sheath. 5F FL 4 diagnostic catheter engaged Left Main Coronary Artery. Multiple orthogonal angiogram obtained and reviewed 6F FR 4 guide catheter engaged
[2023-03-04] MEDS: SODIUM CHLORIDE 0.9% IV 1,000 ML 125 ML IV CONT (18:51)
[2023-03-04] MEDS: EPTIFIBATIDE 0.75 MG/ML 75 MG/100 ML VIAL 12.36 MG IV CONT ×2 (18:55→23:14)
[2023-03-04 20:23] LABS: Glucose Point of Care 200 mg/dl (65-105)
--- NOTE | 2023-03-04 21:00 | WPDCN ---
Assessment and Plan Assessment and plan (1) ST elevation myocardial infarction (STEMI): Code(s): I21.3 - ST elevation (STEMI) myocardial infarction of unspecified site Status: Acute Assessment and Plan: Status post aspiration thrombectomy of acute thrombotic occlusion of the proximal RCA and drug-eluting stent to the ostial-proximal RCA and mid RCA. Management per Dr. Humphrey with recommendations for aspirin 81 mg daily, Brilinta 90 mg b.i.d. for at least a year, high-intensity statin, Integrilin drip for 18 hours given large thrombus burden. (2) Atrial fibrillation: Code(s): I48.91 - Unspecified atrial fibrillation Status: Acute Assessment and Plan: She was in atrial fibrillation on arrival to the ED and briefly went into a rapid ventricular response in the lab rep. She had oriental orthodox of sinus rhythm with amiodarone bolus. May be ischemia driven. Echocardiogram pending. Check TSH. (3) Essential hypertension: Code(s): I10 - Essential (primary) hypertension Status: Acute Assessment and Plan: Blood pressures were reviewed and they have remained stable. (4) Hyperlipidemia: Qualifiers: Hyperlipidemia type: other hyperlipidemia Qualified Code(s): E78.49 - Other hyperlipidemia Code(s): E78.5 - Hyperlipidemia, unspecified Status: Acute Assessment and Plan: She has been started on high-intensity statin for primary service. (5) Type 2 diabetes mellitus without complication, without long-term current use of insulin: Code(s): E11.9 - Type 2 diabetes mellitus without complications Status: Acute Assessment and Plan: Well controlled with a recent hemoglobin A1c of 6.3%. Hold metformin as she received contrast. Initiate sliding scale insulin, Accu-Cheks, and hypoglycemic protocol. (6) Cerebrovascular accident (CVA) with hemiparesis: Onset Date: 08/2020 Status: Acute Assessment and Plan: CVA in August 2020 with mild right side weakness. No acute issues. (7) Obstructive sleep apnea: Code(s): G47.33 - Obstructive sleep apnea (adult) (pediatric) Status: Acute Assessment and Plan: She has fallen out of the habit of using her CPAP as she did not think that it helped her sleep. Plan Thank you for allowing us to participate in this patient's care. Please do not hesitate to contact us with any questions. HPI Data of Consult Date/Time: 09/24/23 21:00 Requesting Physician: Trupti Humphrey MD Consult Narrative Reason for consult: Medical management post STEMI. Narrative: This is a very pleasant 77-year-old female with history of stroke and residual right-sided weakness, essential tremor, paroxysmal atrial tachycardia, hypertension, hyperlipidemia, obstructive sleep apnea, and type 2 diabetes mellitus whom the hospitalist service has been consulted for help managing her medical conditions post STEMI. The patient presented to the emergency department earlier this afternoon for evaluation of sudden onset pressure-like discomfort across her chest associated with shortness of breath, nausea, and sweats. She was taken to the lab rep per Dr. Humphrey for acute inferolateral STEMI due to acute thrombotic occlusion of the proximal RCA with severe obstructive disease of the ostial-proximal RCA and mid RCA status post successful PCI with aspiration thrombectomy and drug-eluting stents to the above vessels. Obstructive coronary disease was also noted of the left circumflex that will need staged PCI. She was in atrial fibrillation on arrival to the emergency department and in the lab rep she went into rapid ventricular response with oriental orthodox of sinus rhythm following amiodarone bolus. At the time my evaluation she is resting comfortably and is eager to be off of bed rest. She is having some minor chest discomfort at this time but nothing significant. Regarding her chronic medical condi
[2023-03-05] VITALS (21 sets, daily range): BP systolic 91–126; BP diastolic 51–73; PULSE 64–95; RESP 12–25; TEMP 36.6–37.1; O2SAT 97–100
--- NOTE | 2023-03-05 | ECHO_ITS ---
Patient Info Name: Anna Bajwa Age: 77 years : 1945 Gender: Female Ht: 70 in Wt: 170 lbs BSA: 1.96 m2 HR: 64 bpm BP: 112 / 59 mmHg Heart Rhythm: Sinus Rhythm Technical Quality: Fair Exam Date: 03/05/2023 1:04 PM Exam Location: [facility] Patient Status: Inpatient Admit Date: 03/04/2023 Staff Ordering Physician: Trupti Humphrey MD (gaye/shala) Yarn Spinner: Juju Calles RDCS Attending Provider: Trupti Humphrey MD (gaye/shala) Referring Physician: Kam DUGAN; Exam Type: CA echo dop color flow w con Study Info Indications - STEMI Complete two-dimensional, color flow and Doppler transthoracic echocardiogram is performed with contrast to opacify the left ventricle and to improve the deliniation of the left ventricle endocardial borders. Contrast/Agitated Saline Contrast/Ag. Saline: Definity Amount: 2.00 ml Administered By: Juju Calles RDCS Existing IV Access: Yes IV Access Condition: patent with no signs of infiltration Summary 1. Left ventricular chamber dimension is normal. 2. Left ventricular systolic function is mildly reduced, estimated at 45-50%. 3. The inferior wall and inferolateral akins are hypokinetic. 4. The left ventricular diastolic function is grade I diastolic dysfunction. 5. Right ventricular systolic function is normal. 6. There is mild tricuspid valve regurgitation. Left Ventricle The inferior wall and inferolateral akins are hypokinetic. Left ventricular chamber dimension is normal. Left ventricular systolic function is mildly reduced, estimated at 45-50%. There is no increased left ventricular wall thickness. The left ventricular diastolic function is grade I diastolic dysfunction. Right Ventricle Right ventricular chamber dimension is normal. Right ventricular systolic function is normal. Left Atria Left atrial chamber dimension is normal. Right Atria Right atrial chamber dimension is normal. Atrial Septum Intact interatrial septum visualized by color flow imaging. Aortic Valve The aortic valve is probable trileaflet. There is no aortic valve regurgitation. There is mild aortic valve calcification. Pulmonic Valve The pulmonic valve is not well visualized. There is trace pulmonic regurgitation. Mitral Valve There is trace mitral valve regurgitation. The mitral valve annulus is moderately calcified. Tricuspid Valve There is mild tricuspid valve regurgitation. Pericardium/Pleural There is no pericardial effusion. Inferior Vena Cava Dilated inferior vena cava with <50% collapse upon inspiration consistent with elevated right atrial pressure, 15 mmHg. Aorta The aortic root size at the sinus of Valsalva is normal. Left Ventricular Outflow Tract Name Value Normal LVOT 2D LVOT Diameter 1.99 cm LVOT Doppler LVOT Peak Gradient 3 mmHg LVOT Mean Gradient 2 mmHg LVOT VTI 17.92 cm LVOT VTI/AV VTI Ratio 0.61 LVOT Stroke Volume 55.79 ml LVOT CO 3.95 l/min LVOT CI 2.0
--- NOTE | 2023-03-05 00:08 | ECG_ITS ---
Measurements Intervals [place] Rate: 90 P: 14 NH: 236 QRS: -59 QRSD: 195 T: 95 QT: 428 QTc: 526 Interpretive Statements ACCELERATED JUNCTIONAL RHYTHM LEFT AXIS DEVIATION LEFT BUNDLE BRANCH BLOCK BASELINE ARTIFACT- I, II, AVR ABNORMAL ECG COMPARED TO ECG 03/04/2023 19:03:04 ACCELERATED JUNCTIONAL RHYTHM NOW PRESENT LEFT-AXIS DEVIATION NOW PRESENT LEFT BUNDLE-BRANCH BLOCK NOW PRESENT Electronically Signed On 03-05-2023 7:38:07 CDT by Uche Willard D.O.
[2023-03-05] MEDS: NITROGLYCERIN SL 0.4 MG TABLET SUBLINGUAL (00:51)
[2023-03-05 04:42] LABS: Basophils Percent Auto 0.3 % (0.2-1.2); Hematocrit 33.8 % (37.0-47.0); Hemoglobin 11.1 g/dL (12.0-15.0); Immature Granulocyte Absolute 0.02 K/mm3 (0.00-0.031); Immature Granulocyte Percent A 0.2 % (0-0.5); Lymphocytes Absolute Auto 1.19 K/mm3 (0.9-3.2); Mean Corpuscular HGB Conc 32.8 g/dl (32-36); Mean Corpuscular Hemoglobin 30.2 pg (26-34); Mean Corpuscular Volume 91.8 fl (80-100); Mean Platelet Volume 10.9 fl (7.4-10.4); Monocytes Absolute Auto 0.6 K/mm3 (0.1-0.6); Monocytes Percent Auto 5.1 % (2.6-8.5); Neutrophils Absolute Auto 10.1 K/mm3 (1.3-6.7); Neutrophils Percent Auto 84.4 % (45.5-73.1); Platelet Count Result 215 k/mm3 (150-375); Red Blood Count 3.68 M/mm3 (4.2-5.4); Red Cell Distribution Width 12.5 % (11.5-14.5); White Blood Count 11.9 K/mm3 (4.5-10.0)
[2023-03-05 04:52] LABS: Alanine Aminotransferase 32 U/L (6-35); Albumin Level 3.7 g/dL (3.5-5.1); Alkaline Phosphatase 58 U/L (38-126); Anion Gap 8 mmol/L (8-16); Aspartate Amino Transferase 160 U/L (14-36); Bilirubin,Total 0.6 mg/dL (0.2-1.3); Blood Urea Nitrogen 20 mg/dL (7-17); Calcium 8.3 mg/dL (8.4-10.2); Carbon Dioxide 21 mmol/L (22-30); Chloride 106 mmol/L (98-107); Estimated CRCL calculation 55 ml/min; Estimated Glomerular Filt Rate > 60; Glucose 237 mg/dL (65-110); Magnesium 1.6 mg/dL (1.6-2.3); Potassium 4.3 mmol/L (3.4-5.0); Sodium 135 mmol/L (137-145)
[2023-03-05 05:27] LABS: Thyroid Stimulating Hormone Reflex 0.798 uIU/mL (0.465-4.68)
[2023-03-05 07:35] LABS: Glucose Point of Care 210 mg/dl (65-105)
--- NOTE | 2023-03-05 07:44 | WPDCNINT ---
Assessment and Plan Assessment and plan (1) ST elevation (STEMI) myocardial infarction: Qualifiers: Involved coronary artery: unspecified coronary artery Qualified Code(s): I21.3 - ST elevation (STEMI) myocardial infarction of unspecified site Code(s): I21.3 - ST elevation (STEMI) myocardial infarction of unspecified site Status: Acute Assessment and Plan: 03/04: presented the ED on 03/04 with sudden onset chest pain associated with diaphoresis, shortness of breath and nausea. -EKG per the EMS was concerning for ST-elevation SD, in the ER EKG confirmed inferior lateral STEMI with atrial fibrillation. - Status post YUMIKO x1 to mid RCA and YUMIKO x1 to ostial proximal RCA. There is obstructive coronary disease of the left circumflex that will need staged PCI, also diagonal disease which will need to be medically managed. Patient was hypotensive in the in labor and delivery registered nurse requiring Levophed briefly. She also received amiodarone bolus after which she converted to sinus rhythm. -currently on Integrilin infusion -continue Brilinta, metoprolol, atorvastatin, aspirin -cardiology following the patient (2) Atrial fibrillation: Code(s): I48.91 - Unspecified atrial fibrillation Status: Acute Assessment and Plan: Currently in sinus rhythm, rate controlled -continue to monitor (3) Essential hypertension: Code(s): I10 - Essential (primary) hypertension Status: Acute Assessment and Plan: Continue metoprolol, blood pressures are stable -continue to monitor (4) Hyperlipidemia: Qualifiers: Hyperlipidemia type: other hyperlipidemia Qualified Code(s): E78.49 - Other hyperlipidemia Code(s): E78.5 - Hyperlipidemia, unspecified Status: Acute Assessment and Plan: Continue atorvastatin (5) Type 2 diabetes mellitus without complication, without long-term current use of insulin: Code(s): E11.9 - Type 2 diabetes mellitus without complications Status: Acute Assessment and Plan: Patient on sliding scale insulin Accu-Cheks -patient on Januvia and metformin, -will restart Januvia today and monitor her blood sugars Plan DVT prophylaxis: Patient status post cardiac catheterization on Integrilin infusion Stress ulcer prophylaxis: Protonix Nutrition: Heart healthy diet Code Status: Full code Critical Care Time Spent: 47 minutes Discussed with patient and her sister at bedside and answered all their questions Due to a high probability of clinically significant, life threatening deterioration, the patient required my highest level of preparedness to intervene emergently and I personally spent this critical care time directly and personally managing the patient. This critical care time included obtaining a history; examining the patient; pulse oximetry; ordering and review of studies; arranging urgent treatment with development of a management plan; evaluation of patient's response to treatment; frequent reassessment; and discussions with other providers. It was exclusive of separately billable procedures and treating other patients and teaching time. Please see Assessment and Plan section and the rest of the note for further information on patient assessment and treatment This dictation may have been done utilizing a voice recognition system. Attempts have been made to correct errors. However, there may be uncorrected grammatical, spelling, and recognitions errors present. Social Sciences Instructor Consult Note Consult date: 03/05/23 Reason for consult: Inferior ST-elevation [place], status post PTCA/PCI with YUMIKO x1 to mid RCA and YUMIKO x1 to ostial proximal RCA HPI: Anna Bajwa is a 77 year old female with past medical history of stroke and right-sided weakness, essential tremors, proximal atrial tachycardia, attention, hyperlipidemia, obstructive sleep apnea, type 2 diabetes, depression, restless leg syndrome presented the ED on 03/04 with sudden onset chest pain asso
[2023-03-05] MEDS: ASPIRIN 81 MG ENTERIC TABLET PO (08:24)
[2023-03-05] MEDS: TICAGRELOR 90 MG TABLET PO ×2 (08:24→20:11)
[2023-03-05] MEDS: calcium polycarbophiL 625 MG TABLET 1250 MG PO (08:24)
[2023-03-05] MEDS: ATORVASTATIN 40 MG TABLET 80 MG PO (08:24)
[2023-03-05] MEDS: PANTOPRAZOLE 40 MG TABLET PO (08:24)
[2023-03-05] MEDS: THERAPEUTIC MULTIVITAMINS/MINERALS TAB (*BKC) 1 TABLET PO (08:24)
[2023-03-05] MEDS: CHOLECALCIFEROL 1,000 UNITS TABLET 2000 UNITS PO (08:24)
[2023-03-05] MEDS: METOPROLOL SUCCINATE EXT REL 25 MG TABCR PO (08:24)
[2023-03-05] MEDS: EPTIFIBATIDE 0.75 MG/ML 75 MG/100 ML VIAL 12.36 MG IV CONT (08:25)
[2023-03-05] MEDS: INSULIN ASPART (*BKC) 100 UNITS/ML SUB-Q ×2 (08:27→20:16)
--- NOTE | 2023-03-05 09:44 | PM.PNCARD ---
Progress Note: A&P Assessment and Plan (1) ST elevation (STEMI) myocardial infarction: Qualifiers: Involved coronary artery: unspecified coronary artery Qualified Code(s): I21.3 - ST elevation (STEMI) myocardial infarction of unspecified site Code(s): I21.3 - ST elevation (STEMI) myocardial infarction of unspecified site Status: Acute Assessment and Plan: Presented with acute inferolateral STEMI. Underwent successful complex PCI with aspiration thrombectomy, PCI with YUMIKO x 1 to the ostial-proximal RCA, PCI with YUMIKO x 1 to the mid RCA. Will eventually need staged PCI to LCX lesion. Medical management for diagonal disease. Loaded with ASA in the ED. Continue with ASA 81mg once daily indefinitely. Loaded with Brilinta 180mg in the ED. Continue with Brilinta 90mg BID for at least 1 year. High-intensity statin. Will start low dose beta mi. Echocardiogram pending Will do Integrilin drip for 18 hours given the large coronary thrombus burden. OK to downgrade to IMU level of care (2) Atrial fibrillation: Code(s): I48.91 - Unspecified atrial fibrillation Status: Acute Assessment and Plan: Had atrial fibrillation on presentation. No prior diagnosis of atrial fibrillation. During time of PCI, she went into AFIB with RVR, and I gave her an Amiodarone bolus. After revascularization, she went into sinus rhythm. Likely that the atrial fibrillation was driven by the ischemia. Monitor on tele. Beta mi. Will hold off on anticoagulation at this time for the atrial fibrillation unless she has recurrent atrial fibrillation. (3) Hyperlipidemia: Qualifiers: Hyperlipidemia type: other hyperlipidemia Qualified Code(s): E78.49 - Other hyperlipidemia Code(s): E78.5 - Hyperlipidemia, unspecified Status: Acute Assessment and Plan: High intensity statin (4) Type 2 diabetes mellitus without complication, without long-term current use of insulin: Code(s): E11.9 - Type 2 diabetes mellitus without complications Status: Acute Assessment and Plan: Consult Hospitalist for management. Subjective Date/time seen: 03/05/23 09:44 Interval history: Cardiology follow up for STEMI She is feeling well this morning and has not had any recurrence of chest pain since last night. Remains on Integrilin drip. Denies any shortness of breath, palpitations. Review of Systems Review of Systems: All systems reviewed & are unremarkable except as noted in HPI and below (HPI) Exam Const: General: comfortable and no acute distress HENMT: Mouth: Yes moist mucous membranes Eyes: General: appearance normal, both eyes and all related structures Neck: Neck: supple Resp: Effort & Inspection: normal respiratory effort Cardio: Rate: regular rate Rhythm: regular rhythm Skin: General skin exam: normal color Other: R groin arterial insertion site free from bleeding, hematoma, pain Neuro: Speech: normal speech Extrem: General: no edema Psych: Mental Status: mental status grossly normal Affect: normal affect Objective Data Vital Signs Vital Signs: Vital Signs - 24 hr 03/04/23 15:28 03/04/23 15:54 03/04/23 18:34 Temperature 36.4 C L 36.6 C Pulse Rate 90 64 89 Respiratory Rate 11 L 18 14 Blood Pressure 122/95 H 125/83 Pulse Oximetry 100 98 98 Oxygen Delivery Room Air Oxygen Flow Rate 03/04/23 18:56 03/04/23 19:04 03/04/23 19:19 Temperature Pulse Rate 85 87 88 Respiratory Rate 19 18 98 H Blood Pressure 117/75 117/75 126/68 Pulse Oximetry 98 98 20 L Oxygen Delivery Oxygen Flow Rate 03/04/23 19:34 03/04/23 20:04 03/04/23 20:34 Temperature 36.6 C Pulse Rate 84 89 79 Respiratory Rate 18 19 18 Blood Pressure 118/66 127/72 105/54 L Pulse Oximetry 98 98 99 Oxygen Delivery Oxygen Flow Rate 03/04/23 20:00 03/04/23 20:00 03/04/23 21:00 Temperature Pulse Rate 85 89 78 Respiratory Rate 19 17 Blo
[2023-03-05 11:34] LABS: Glucose Point of Care 189 mg/dl (65-105)
[2023-03-05] MEDS: PERFLUTREN LIPID MICROSPHERES 1.5 ML VIAL DILUTED TO 10 ML TOTAL VOLUME IV PUSH (14:44)
[2023-03-05 16:38] LABS: Glucose Point of Care 163 mg/dl (65-105)
--- NOTE | 2023-03-05 16:58 | IVDEFINITY ---
Prior to administration of IV Definity the patient was educated on the risks and benefits of the imaging enhancing agent including potential adverse side effects. The patient verbalized understanding. Allergies were verified. No exclusion criteria were identified and at least one of the following inclusion criteria were met: 1) physician request, 2) patient technically difficult to image (per the [place] [employer] guidelines of two or more segments not discernable within the apical view), or 3) questionable left ventricular function. ?
[2023-03-05 20:42] LABS: Glucose Point of Care 217 mg/dl (65-105)
[2023-03-06] VITALS (8 sets, daily range): BP systolic 109; BP diastolic 57–63; PULSE 71–84; RESP 13–18; TEMP 36.6–36.8; O2SAT 98–99
[2023-03-06 05:05] LABS: Basophils Absolute Auto 0.1 K/mm3 (0.0-0.1); Basophils Percent Auto 0.6 % (0.2-1.2); Eosinophils Absolute Auto 0.2 K/mm3 (0-0.3); Hemoglobin 10.6 g/dL (12.0-15.0); Immature Granulocyte Absolute 0.04 K/mm3 (0.00-0.031); Immature Granulocyte Percent A 0.4 % (0-0.5); Lymphocytes Absolute Auto 2.01 K/mm3 (0.9-3.2); Lymphocytes Percent Auto 20.3 % (18.3-44.2); Mean Corpuscular HGB Conc 32.1 g/dl (32-36); Mean Corpuscular Hemoglobin 29.4 pg (26-34); Mean Corpuscular Volume 91.4 fl (80-100); Mean Platelet Volume 11.1 fl (7.4-10.4); Monocytes Absolute Auto 0.9 K/mm3 (0.1-0.6); Monocytes Percent Auto 9.3 % (2.6-8.5); Neutrophils Absolute Auto 6.7 K/mm3 (1.3-6.7); Neutrophils Percent Auto 67.4 % (45.5-73.1); Platelet Count Result 186 k/mm3 (150-375); Red Blood Count 3.61 M/mm3 (4.2-5.4); Red Cell Distribution Width 12.6 % (11.5-14.5); White Blood Count 9.9 K/mm3 (4.5-10.0)
[2023-03-06 05:17] LABS: Alanine Aminotransferase 27 U/L (6-35); Albumin Level 3.6 g/dL (3.5-5.1); Alkaline Phosphatase 57 U/L (38-126); Anion Gap 5 mmol/L (8-16); Aspartate Amino Transferase 105 U/L (14-36); Bilirubin,Total 0.9 mg/dL (0.2-1.3); Blood Urea Nitrogen 16 mg/dL (7-17); Calcium 8.8 mg/dL (8.4-10.2); Carbon Dioxide 24 mmol/L (22-30); Chloride 107 mmol/L (98-107); Estimated CRCL calculation 55 ml/min; Estimated Glomerular Filt Rate > 60; Glucose 157 mg/dL (65-110); Potassium 3.8 mmol/L (3.4-5.0); Sodium 136 mmol/L (137-145)
[2023-03-06 07:51] LABS: Glucose Point of Care 170 mg/dl (65-105)
[2023-03-06] MEDS: METOPROLOL SUCCINATE EXT REL 25 MG TABCR PO (08:02)
[2023-03-06] MEDS: ATORVASTATIN 40 MG TABLET 80 MG PO (08:03)
[2023-03-06] MEDS: TICAGRELOR 90 MG TABLET PO (08:03)
[2023-03-06] MEDS: THERAPEUTIC MULTIVITAMINS/MINERALS TAB (*BKC) 1 TABLET PO (08:03)
[2023-03-06] MEDS: ASPIRIN 81 MG ENTERIC TABLET PO (08:03)
[2023-03-06] MEDS: PANTOPRAZOLE 40 MG TABLET PO (08:04)
[2023-03-06] MEDS: CHOLECALCIFEROL 1,000 UNITS TABLET 2000 UNITS PO (08:04)
[2023-03-06] MEDS: calcium polycarbophiL 625 MG TABLET 1250 MG PO (08:05)
--- NOTE | 2023-03-06 10:17 | PM.DS ---
DS: Admitting Diagnosis Discharge Date 03/06/2023 Admitting Diagnosis STEMI DS: Summary Hospital Course Reason for hospitalization: STEMI Hospital Course: Presented with acute inferolateral STEMI. Underwent successful complex PCI with aspiration thrombectomy, PCI with YUMIKO x 1 to the ostial-proximal RCA, PCI with YUMIKO x 1 to the mid RCA. Will eventually need staged PCI to LCX lesion. Medical management for diagonal disease. Echocardiogram shows LVEF 45-50%, hypokinesis of the inferior and inferolateral akins. No significant valvular disease. Loaded with ASA in the ED. Continue with ASA 81mg once daily indefinitely. Loaded with Brilinta 180mg in the ED. Continue with Brilinta 90mg BID for at least 1 year. High-intensity statin. Continue Metoprolol 25mg QD. Had atrial fibrillation on presentation. No prior diagnosis of atrial fibrillation. During time of PCI, she went into AFIB with RVR. After revascularization, she went into sinus rhythm. Likely that the atrial fibrillation was driven by the ischemia. Continue with beta mi. Will hold off on anticoagulation at this time for the atrial fibrillation unless she has recurrent atrial fibrillation. Will order 30 day outpatient monitor to assess for any recurrence of atrial fibrillation. Outpatient follow up with Dr. 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 Status at Discharge Functional status at discharge: independent ambulation Time Spent with Patient Time attestation: Total time spent providing and/or coordinating discharge services: Exam Const: General: comfortable and no acute distress HENMT: Mouth: Yes moist mucous membranes Eyes: General: appearance normal, both eyes and all related structures Sclera: sclerae normal Neck: Neck: supple Resp: Effort & Inspection: normal respiratory effort Auscultation: clear to auscultation bilaterally Cardio: Rate: regular rate Rhythm: regular rhythm Heart sounds: no murmurs Skin: General skin exam: normal color Psych: Mental Status: mental status grossly normal Affect: normal affect DS: Data Data Completed and Pending Labs on day of discharge: Labs from last 24 hours 03/06/23 03/06/23 03/05/23 07:37 04:48 20:07 WBC 9.9 RBC 3.61 L Hgb 10.6 L Hct 33.0 L MCV 91.4 MCH 29.4 MCHC 32.1 RDW 12.6 Plt Count 186 MPV 11.1 H Immature Gran % (Auto) 0.4 Neut % (Auto) 67.4 Lymph % (Auto) 20.3 Fleming % (Auto) 9.3 H Eos % (Auto) 2.0 Baso % (Auto) 0.6 Lymph # (Auto) 2.01 Fleming # (Auto) 0.9 H Eos # (Auto) 0.2 Baso # (Auto) 0.1 Abs Immat Gran (auto) 0.04 H Absolute Neuts (auto) 6.7 Absolute Nucleated RBC 0.0 Nucleated RBC % 0.0 Sodium 136 L Potassium 3.8 Chloride 107 Carbon Dioxide 24 Anion Gap 5 L BUN 16 Creatinine 0.80 Estim Creat Clear Calc 55 Estimated GFR > 60 Glucose 157 H POC Capillary Glucose 170 H 217 H Calcium 8.8 Total Bilirubin 0.9 AST 105 H ALT 27 Alkaline Phosphatase 57 Total Protein 6.0 L Albumin 3.6 03/05/23 03/05/23 16:32 11:30 WBC RBC Hgb Hct MCV MCH MCHC RDW Plt Count MPV Immature Gran % (Auto) Neut % (Auto) Lymph % (Auto) Fleming % (Auto) Eos % (Auto) Baso % (Auto) Lymph # (Auto) Fleming # (Auto) Eos # (Auto) Baso # (Auto) Abs Immat Gran (auto) Absolute Neuts (auto) Absolute Nucleated RBC Nucleated RBC % Sodium Potassium Chloride Carbon Dioxide Anion Gap BUN Creatinine Estim Creat Clear Calc Estimated GFR Glucose POC Capillary Glucose 163 H 189 H Calcium Total Bilirubin AST ALT Alkaline Phosphatase Total Protein Albumin Discharge Plan Discharge Attending physician on discharge: Trupti Humphrey Consulting providers: Camilo Richardson Discharging Clinician: Trupti Humphrey Anticipated Discharge Date/Time: 03/06/23 10:17 Patient Disposition: Home, Self-Care
--- NOTE | 2023-03-06 11:13 | PM.IMPN ---
Progress Note: A&P Assessment and Plan (1) ST elevation (STEMI) myocardial infarction: Qualifiers: Involved coronary artery: unspecified coronary artery Qualified Code(s): I21.3 - ST elevation (STEMI) myocardial infarction of unspecified site Code(s): I21.3 - ST elevation (STEMI) myocardial infarction of unspecified site Status: Acute Assessment and Plan: Status post stent Will need staged PCI. Will be managed set up a cardiology Continue cardiac regimen (2) Atrial fibrillation: Code(s): I48.91 - Unspecified atrial fibrillation Status: Acute Assessment and Plan: Currently in sinus rhythm, rate controlled -continue to monitor (3) Essential hypertension: Code(s): I10 - Essential (primary) hypertension Status: Acute Assessment and Plan: Continue metoprolol, blood pressures are stable -continue to monitor (4) Hyperlipidemia: Qualifiers: Hyperlipidemia type: other hyperlipidemia Qualified Code(s): E78.49 - Other hyperlipidemia Code(s): E78.5 - Hyperlipidemia, unspecified Status: Acute Assessment and Plan: Continue atorvastatin (5) Type 2 diabetes mellitus without complication, without long-term current use of insulin: Code(s): E11.9 - Type 2 diabetes mellitus without complications Status: Acute Assessment and Plan: Patient on sliding scale insulin Accu-Cheks -patient on Januvia and metformin, -will restart Januvia today and monitor her blood sugars Plan DVT prophylaxis: Patient status post cardiac catheterization on Integrilin infusion Stress ulcer prophylaxis: Protonix Nutrition: Heart healthy diet Code Status: Full code Critical Care Time Spent: 47 minutes Discussed with patient and her sister at bedside and answered all their questions Due to a high probability of clinically significant, life threatening deterioration, the patient required my highest level of preparedness to intervene emergently and I personally spent this critical care time directly and personally managing the patient. This critical care time included obtaining a history; examining the patient; pulse oximetry; ordering and review of studies; arranging urgent treatment with development of a management plan; evaluation of patient's response to treatment; frequent reassessment; and discussions with other providers. It was exclusive of separately billable procedures and treating other patients and teaching time. Please see Assessment and Plan section and the rest of the note for further information on patient assessment and treatment This dictation may have been done utilizing a voice recognition system. Attempts have been made to correct errors. However, there may be uncorrected grammatical, spelling, and recognitions errors present. Subjective Date/time seen: 03/06/23 11:13 Interval history: No complaints Exam Narrative: General: Pleasant female in no acute distress HEENT:? Pupils equal and reactive, sclera is clear Neck:? Supple Respiratory:? Clear to auscultation bilaterally Cardiac:? S1-S2 is normal, regular rate and rhythm, no murmurs Abdomen:? Soft, nontender, nondistended, normoactive bowel sounds Extremities:? No edema, intact pedal pulses Neuro:? Patient is awake, alert, oriented, nonfocal, answers all questions appropriately and follows simple commands in all extremities Skin:? Right groin site with no evidence of ecchymosis or hematoma Psych:? Normal mentation and affect Objective Data Vital Signs Vital Signs: Vital Signs - 24 hr 03/05/23 12:00 03/05/23 12:00 03/05/23 12:00 Temperature 98.3 F Pulse Rate 71 73 Respiratory Rate 19 Blood Pressure 106/63 Pulse Oximetry 98 99 Oxygen Delivery Room Air 03/05/23 14:00 03/05/23 16:00 03/05/23 16:00 Temperature Pulse Rate 72 74 Respiratory Rate Blood Pressure Pulse Oximetry 98 Oxygen Delivery Room Air 03/05/23 16:00
== END 2023-03-06 11:05 | disposition home or self-care (01) | DRG 247 ==
LOC: ANHED 15:50 → ANHICU 16:01
PROVIDERS: Physician Assistant; Admitting Provider Internal Medicine; Emergency Provider Student in an Organized Health Care Education/Training Program; PCP Nurse Practitioner; Visit Provider Internal Medicine
PROC: 027035Z Dilation of Coronary Artery, One Artery with Two Drug-eluting Intraluminal Devices, Percutaneous Approach (ICD-10-PCS; CPT 93454; principal; 2023-03-04 16:00)
PROC: 027035Z Dilation of Coronary Artery, One Artery with Two Drug-eluting Intraluminal Devices, Percutaneous Approach (ICD-10-PCS; 2023-03-04 16:00)
PROC: 027035Z Dilation of Coronary Artery, One Artery with Two Drug-eluting Intraluminal Devices, Percutaneous Approach (ICD-10-PCS; 2023-03-04 16:00)
PROC: 027035Z Dilation of Coronary Artery, One Artery with Two Drug-eluting Intraluminal Devices, Percutaneous Approach (ICD-10-PCS; 2023-03-04 16:00)
DX: I21.19 ST elevation (STEMI) myocardial infarction involving other coronary artery of inferior wall (principal); I69.351 Hemiplegia and hemiparesis following cerebral infarction affecting right dominant side; I47.1 Supraventricular tachycardia; I95.89 Other hypotension; I25.10 Atherosclerotic heart disease of native coronary artery without angina pectoris; I48.91 Unspecified atrial fibrillation; I10 Essential (primary) hypertension; I65.29 Occlusion and stenosis of unspecified carotid artery; E78.5 Hyperlipidemia, unspecified; E55.9 Vitamin D deficiency, unspecified; E11.9 Type 2 diabetes mellitus without complications; K21.9 Gastro-esophageal reflux disease without esophagitis; G47.33 Obstructive sleep apnea (adult) (pediatric); G25.81 Restless legs syndrome; F32.A Depression, unspecified; Z79.82 Long term (current) use of aspirin; Z23 Encounter for immunization
CPT/HCPCS: 36415; 71045; 80053; 80061; 82948; 83735; 84443; 84484; 85025; 85610; 85730; 86850; 86900; 86901; 90471; 90694; 92978; 93005; 93454; 96374; 99291; A9270; C1725; C1753; C1757; C1760; C1769; C1874; C1887; C1894; C8929; C9606; G0008; G0269; J0282; J0583; J1327; J1644; J1815; J2250; J2305; J3010; J7030; J7040; J7060; Q9957

== ENCOUNTER 2023-04-18 02:35 | Day surgery (SDC) | payer MEDICARE, SELFPAY ==
[2023-04-18] VITALS (15 sets, daily range): BP systolic 109–134; BP diastolic 52–70; PULSE 70–83; RESP 13–20; TEMP 36.6–37; O2SAT 95–100; BMI 24.3
[2023-04-18 07:58] LABS: Basophils Percent Auto 0.6 % (0.2-1.2); Eosinophils Absolute Auto 0.1 K/mm3 (0-0.3); Eosinophils Percent Auto 2.2 % (0-4.4); Hematocrit 38.6 % (37.0-47.0); Hemoglobin 12.3 g/dL (12.0-15.0); Immature Granulocyte Absolute 0.02 K/mm3 (0.00-0.031); Immature Granulocyte Percent A 0.3 % (0-0.5); Lymphocytes Absolute Auto 1.68 K/mm3 (0.9-3.2); Lymphocytes Percent Auto 25.8 % (18.3-44.2); Mean Corpuscular HGB Conc 31.9 g/dl (32-36); Mean Corpuscular Hemoglobin 29.1 pg (26-34); Mean Corpuscular Volume 91.5 fl (80-100); Mean Platelet Volume 10.7 fl (7.4-10.4); Monocytes Absolute Auto 0.5 K/mm3 (0.1-0.6); Monocytes Percent Auto 8.2 % (2.6-8.5); Neutrophils Absolute Auto 4.1 K/mm3 (1.3-6.7); Neutrophils Percent Auto 62.9 % (45.5-73.1); Platelet Count Result 240 k/mm3 (150-375); Red Blood Count 4.22 M/mm3 (4.2-5.4); White Blood Count 6.5 K/mm3 (4.5-10.0)
[2023-04-18 08:08] LABS: Anion Gap 10 mmol/L (8-16); Blood Urea Nitrogen 22 mg/dL (7-17); Calcium 9.6 mg/dL (8.4-10.2); Carbon Dioxide 24 mmol/L (22-30); Chloride 106 mmol/L (98-107); Estimated CRCL calculation 55 ml/min; Estimated Glomerular Filt Rate > 60; Glucose 135 mg/dL (65-110); Potassium 3.9 mmol/L (3.4-5.0); Sodium 140 mmol/L (137-145)
--- NOTE | 2023-04-18 09:08 | WPDHPUPDATE1 ---
History and Physical Update Update Date/Time: 04/18/23 09:08 History and Physical has been reviewed, including an updated exam of the patient. There are NO changes in the patient's condition. Risks, benefits, and alternatives have been discussed and questions answered. Patient agrees to proceed with procedure.
--- NOTE | 2023-04-18 09:08 | WPDMODSED ---
Moderate Sedation Note-Pt Data Patient Data Diagnosis: Coronary artery disease Present Complaint: Coronary artery disease Procedure to be performed/Plan: Coronary angiography, left heart cath, +/- PCI Allergies Allergy/AdvReac Type Severity Reaction Status Date / Time amoxicillin Allergy Mild rash Verified 04/18/23 07:24 Penicillins Allergy Mild RASH Verified 04/18/23 07:24 erythromycin base AdvReac Intermediate raised Verified 04/18/23 07:24 liver enzymes levofloxacin AdvReac Intermediate Diarrhea Verified 04/18/23 07:24 acetaminophen AdvReac Mild Insomnia Verified 04/18/23 07:24 lisinopril AdvReac Unknown COUGH Verified 04/18/23 07:24 Home Medications Medication Instructions Recorded Confirmed Type omega-3 fatty acids 1,000 mg 2,000 mg PO DAILY 08/24/21 04/18/23 History capsule methylcellulose (laxative) 500 mg 500 mg PO DAILY 12/29/21 04/18/23 History tablet (Citrucel) [facility]/28/22 03/20/23 Rx Verio test strips) cholecalciferol (vitamin D3) 50 50 mcg PO DAILY 06/27/22 04/18/23 History mcg (2,000 unit) capsule metformin 500 mg tablet,extended 1,000 mg PO DAILY 03/04/23 04/17/23 History release 24hr gzvklvqu-hky-xntoq acid 0.4 1 tablet PO DAILY 03/04/23 04/18/23 History mg-lycopene 300 mcg-lutein 250 mcg tablet (Centrum Silver) omeprazole 20 mg capsule,delayed 20 mg PO DAILY 03/04/23 04/18/23 History release aspirin 81 mg tablet,delayed 81 mg PO QAM #90 tabs 03/06/23 04/18/23 Rx release ticagrelor 90 mg tablet (Brilinta) 90 mg PO Q12HR #180 tabs 03/06/23 04/18/23 Rx atorvastatin 80 mg tablet 80 mg PO DAILY #90 tabs 04/06/23 04/18/23 Rx lancets 33 gauge ([facility] #[facility] ea 04/16/23 Rx Plus Lancet) metoprolol succinate 25 mg 25 mg PO DAILY 04/17/23 04/18/23 History tablet,extended release 24 hr sitagliptin phosphate 100 mg 100 mg PO DAILY 04/17/23 04/17/23 History tablet (Januvia) Current Medications: Active Medications Sodium Chloride (Normal Saline Iv) 500 mls @ 100 mls/hr IV CONT .Q5H YAN Sedation/Anesthesia: No previous sedation/anesthesia problems (including family history). [facility] Past Medical History Medical History Carotid stenosis Cerebrovascular accident (CVA) with hemiparesis (08/2020) Chronic gastroesophageal reflux disease Depression Essential hypertension Gastroesophageal reflux disease Hyperlipidemia Liver mass Low vitamin D level Obstructive sleep apnea No longer using CPAP. Postmenopausal Restless legs syndrome (RLS) Type 2 diabetes mellitus without complication, without long-term current use of insulin Surgical History Surgical History History of bilateral cataract extraction History of cardiac catheterization (03/04/23) History of coronary artery stent placement (03/04/23) Drug-eluting stent to ostial-proximal RCA and mid RCA per Dr. Humphrey. History of hysterectomy with oophorectomy (1987) Family History Family History Father Family history of Parkinson's disease Heart problem Mother Cancer Sibling Anxiety Heart problem Grandparent Cancer Other Depression Diabetes mellitus Family history of Alzheimer's disease Family history of cardiovascular disease Family history of congestive heart failure Family history of malignant neoplasm Heart disease Social History Social History Social History: Code status: Full code. Smoking status: Never smoker Second hand tobacco smoke exposure: No Alcohol intake: never Substance use: never Substance use type: does not use Lack of Transportation: No Lack of Food: Never True Current Housing: I Have Housing Concerned About Future Housing: No Difficulty Paying Gas/Electric Bills: No Difficulty Payin
--- NOTE | 2023-04-18 09:09 | WPDCARDPROC ---
Cardiac Cath Procedure Note Date of procedure:: 04/18/23 Performing physician:: CATHETERIZATION LABORATORY REPORT Procedure Date: 04/18/2023 Manager Battery: Trupti Humphrey M.D., [facility]? Referring Physician: Dr. Willard ? Anesthesia: Versed and Fentanyl were ordered and given in my presence at 09:25, procedure ended at 10:00. Supervision of nurse monitored moderate sedation with Versed and Fentanyl was provided for 35 minutes. Total of Versed 1mg and Fentanyl 25mcg were administered by the Process Manager RN Isra Tejada. Pre-op Diagnosis: Coronary artery disease Post-op Diagnosis: Successful IVUS-guided PCI with YUMIKO x 1 in the proximal-mid left circumflex. Procedure(s): 1. Moderate sedation 2. Ultrasound-guided access of the right common femoral artery 3. Selective coronary angiography 4. IVUS of LCX 5. PCI of LCX with YUMIKO x 1 6. Angioseal closure of the right common femoral artery Access Site: Right common femoral artery Brief History and Clinical Indications: Patient is a 77 year old female who is referred for staged PCI of LCX. All risks, benefits and alternatives to left heart catheterization with or without percutaneous coronary intervention was discussed at length with the patient. Risk of complications including but not limited to bleeding, infection, arrhythmia, stroke, worsening kidney function, blood loss, groin hematoma, limb loss, emergency coronary artery bypass grafting, and even were discussed with the patient and all questions were answered. The patient understood and wished to proceed. Time out called, patient name, date of , medical record number, allergies, procedure performed, identify Manager Battery, patient and staff member concurred with accurate data, procedure carried on. Findings: LEFT HEART CATHETERIZATION FINDINGS: Left circumflex: The proximal-mid left circumflex has a focal 90-99% stenosis. Remainder of the LCX and OM branch have mild diffuse disease. Description of Procedure & PCI: Informed consent signed and placed in the chart. Patient transferred to medical laboratory assistant room. Prepped and draped in usual sterile fashion. 2% lidocaine in right groin area. Micropuncture needle used to access right common femoral artery under ultrasound guidance. J wire advanced, micropuncture cannula placed. Right iliofemoral angiogram performed, access confirmed and micropuncture cannula exchanged for 6-FR sheath. Angiomax used for anticoagulation. 6F CLS 3.5 guide catheter was used to intubate the left main. Selective coronary angiograms of the left circumflex obtained. 0.014 [place] coronary wire was passed in to the distal OM branch. The lesion was pre-dilated with a 2.5mm x 10mm balloon inflated to high YAMILKA. Multiple balloon inflations done. IVUS catheter advanced distal to the lesion. Reference measurements obtained. A 2.75mm x 15mm Brave YUMIKO was successfully deployed into proximal-mid LCX. Intracoronary NTG was administered Follow-up angiograms showed an excellent result Coronary wire and guide-catheter were removed No angiographic complications identified. Hemostasis was achieved by 6F Angioseal. ? Assessment: Successful IVUS-guided PCI with YUMIKO x 1 in the proximal-mid left circumflex. Post Operative Condition: Stable No significant blood loss Disposition: Home Plan: The patient will be monitored in the recovery area. Discharge home after post PCI bed rest is completed. DAPT for 1 year followed by ASA indefinitely. The above findings were discussed with the referring physician. Continue aggressive medical therapy and risk factor modification. ? Trupti Humphrey M.D. Interventional Cardiology
--- NOTE | 2023-04-18 10:19 | ECG_ITS ---
Measurements Intervals [place] Rate: 73 P: 61 ID: [id number] QRS: -31 QRSD: 102 T: -49 QT: 397 QTc: 438 Interpretive Statements SINUS RHYTHM LOW QRS VOLTAGE- DIFFUSE LEADS INFERIOR INFARCT, AGE INDETERMINATE BASELINE ARTIFACT- II, III ABNORMAL ECG COMPARED TO ECG 03/05/2023 00:18:50 SINUS RHYTHM NOW PRESENT ACCELERATED JUNCTIONAL RHYTHM NO LONGER PRESENT Electronically Signed On 04-18-2023 10:37:50 MEDICAL CENTER MANAGER by Uche Willard D.O.
== END 2023-04-18 16:12 | disposition home or self-care (01) ==
PROVIDERS: PCP Nurse Practitioner; Visit Provider Internal Medicine
PROC: (CPT 92928; principal; 2023-04-18 08:30)
DX: I25.10 Atherosclerotic heart disease of native coronary artery without angina pectoris (principal); I69.359 Hemiplegia and hemiparesis following cerebral infarction affecting unspecified side; I10 Essential (primary) hypertension; E11.9 Type 2 diabetes mellitus without complications; E78.5 Hyperlipidemia, unspecified; K21.9 Gastro-esophageal reflux disease without esophagitis; E55.9 Vitamin D deficiency, unspecified; G47.33 Obstructive sleep apnea (adult) (pediatric); F32.A Depression, unspecified; Z79.01 Long term (current) use of anticoagulants; Z79.82 Long term (current) use of aspirin; Z79.84 Long term (current) use of oral hypoglycemic drugs
CPT/HCPCS: 36415; 80048; 85025; 92978; 93005; C1725; C1753; C1760; C1769; C1874; C1887; C1894; C9600; G0269; J0583; J1644; J2250; J2305; J3010; J7040

== ENCOUNTER 2023-06-28 13:30 | Outpatient (RCR) | payer MEDICARE, SELFPAY ==
[2023-05-01 15:44] VITALS: PULSE 85
== END 2023-06-28 16:09 | disposition home or self-care (01) ==
LOC: ANHCPREHAB 13:30
PROVIDERS: PCP Nurse Practitioner; Visit Provider Internal Medicine Cardiovascular Disease
DX: Z95.5 Presence of coronary angioplasty implant and graft (principal)
CPT/HCPCS: 93798

== ENCOUNTER 2025-02-11 13:30 | Outpatient (RCR) | payer MEDICARE, SELFPAY ==
--- NOTE | 2025-01-07 12:10 | OPREHPOC ---
Outpatient Therapy Plan of Care This is a Multidisciplinary Plan of Care that may contain components documented by all disciplines (PT, OT, and ST.) PT Problem 1 PT Problem #1 Knowledge Deficit PT Goal 1 Goal / Goal Update Patient to demonstrate independence with HEP for improved self-reliance of symptom management. Target Visit 5 PT Problem 2 PT Problem #2 Pain PT Goal 1 Goal / Goal Update Patient to decrease subjective reports of pain to <4/10 for 2 consecutive weeks with prolonged standing for improved ADL tolerance. Target Visit 10 PT Problem 3 PT Problem #3 Impaired Vestibular System PT Goal 1 Goal / Goal Update Patient to demonstrate an increase of R knee AROM of 0-120 deg to improve mobility required for gait /stair negotiation. Target Visit 10 PT Problem 4 PT Problem #4 Impaired Gait PT Goal 1 Goal / Goal Update 1. Patient to improve confidence and understanding of gait mechanics and stair negotiation with SC to improve community navigation. 2. Patient to improve gait mechanics and stair negotiation to no noted deficit and reciprocal pattern for improved community navigation. 3. Patient to improve distance ambulated during 2MWT from 50 feet to 150 feet with SC to demonstrate an improvement in ADL endurance Target Visit 10 PT Problem 5 PT Problem #5 Impaired Strength PT Goal 1 Goal / Goal Update Patient to demonstrate R knee strength >=4+/5 for improved functional stability required for ADLs.
--- NOTE | 2025-01-07 12:11 | PTOPEVAL1 ---
Assessment and note entered by Jordyn Dumont, PT Evaluation Information Assessment Status Evaluation ICD-10 Condition Codes (PT) Pain in right knee M25.561 Onset 12/25 Subjective Information Pt fell at her brothers house on 12/25 while in [place] going up 1 step from the living room to the dining room. She thinks missed part of the step, did not directly hit her knee. She did not go to the ER but instead saw a doctor in [place], they took 5 Xrays with no fractures noted. She is having pain deep in the joint and sometimes in to the youssef area. She is using a regular walker since to help off load the leg. She does have a h/o a CVA with R sided weakness in '. Is taking Tylenol, medicated match, and a steroid pack till yesterday. PLOF: I with all ADLs, driving, grocery shopping, lives alone, 15+ stairs to enter basement, ramp to enter home CLOF: sister is checking in everyday, using a walker, avoiding stairs, sister doing the driving, dishes, laundry, cooking Reported Pain Level Pain Score 5: Self Report Assessment PT Clinical Summary Pt is a 79 year old female who presents to physical therapy with a primary complaint o fR knee pain since a ground level fall on 12/25. Pt demonstrates SERGEI LE weakness, pain, decreased mobility, gait deficit, decreased stability that impairs her balance and decreased endurance that limit their ability to perform ADLs. Pt will benefit from skilled physical therapy to address the above listed deficits and return to PLOF. HEP instructed and written handout provided, EX tolerated well with no adverse effects to note post-session. Pt was educated on importance of adherence to HEP. Pt was also educated on anatomy, prognosis, home modalities, and PT POC. Plan of Care Interventions Aquatic Therapy,Gait Training,Hot Pack/Cold Pack, Intermittent Compression Pump,Manual Therapy,Neuro Re-education,Patient/Caregiver Education, Therapeutic Activities,Therapeutic Exercise,Self- Care/Home Management Other Interventions taping PT Services Indicated Yes Treatment Frequency and 2x/wk for 10 sessions Duration These treatments will address the objective and functional deficits as defined above. The patient will be advanced safely and appropriately in order for the patient to progress towards his/her prior level of function. Additional exercises will be introduced and as well as a comprehensive home exercise program upon discharge, if needed, ?to ensure carryover of functional gains achieved in the clinic. This treatment plan has been reviewed and agreement upon by the patient.
--- NOTE | 2025-02-11 14:00 | PTOPDC ---
Assessment and note entered by Jordyn Dumont, PT Evaluation Information Assessment Status Discharge ICD-10 Condition Codes (PT) Pain in right knee M25.561 Onset 12/25 Subjective Information Pt has not been using the walker for a while or any type of device. She has been concentrating on gettign better since starting PT and seeing the doctor with the changes in pain medication. She reports feeling 100% improvement since her fall. She is back to driving, cooking, cleaning, and mild grocery shopping. She reports pain at its worst 2/10 in the last 2 weeks. It is never long lasting and does not keep her from performing ADLs . Reported Pain Level Pain Score 0: Self Report Assessment PT Clinical Summary Patient's condition has improved overall as evidenced by advancements in symptoms, mobility, strength, gait, endurance, stair negotiation, and overall functional use of the extremity. Pt subjective reports of disability decreased from 94 % to 30%. Pt has met all therapy goals and is pleased with progress made in PT. Patient to DC from PT this date and continue with updated HEP as instructed. Pt to contact PT or PCP if questions or concerns arise. Plan of Care PT Services Indicated Yes
== END 2025-02-11 16:34 | disposition home or self-care (01) ==
LOC: ANHPT 13:30
PROVIDERS: PCP Nurse Practitioner
DX: M17.11 Unilateral primary osteoarthritis, right knee (principal); M25.561 Pain in right knee
CPT/HCPCS: 97110; 97116; 97140; 97161; 97530